=== PATIENT | female | born 2005 | race Hispanic/Latino ===

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

== ENCOUNTER → 2024-01-05 11:00 | Outpatient (REF) | payer OTHER, SELFPAY ==
[2024-01-07 20:10] LABS: Quantiferon Mitogen minus NIL 5.35 IU/mL; Quantiferon NIL 0.01 IU/mL; Quantiferon TB Gold Plus Negative (Negative)
== END ==
LOC: OHS 11:00
PROVIDERS: ATTENDING PHYSICIAN Nurse Practitioner Family
DX: Z23 Encounter for immunization (principal)
CPT/HCPCS: 36415; 86480

== ENCOUNTER 2024-02-27 09:28 | Emergency (ER) | payer OTHER, SELFPAY ==
[2024-02-27 09:39] VITALS: BP 131/89
[2024-02-27 09:58] VITALS: BMI 40.1
[2024-02-27 10:02] VITALS: BP 131/85
[2024-02-27] MEDS: NSS 1000 IV ×2 (10:26→11:46)
[2024-02-27] MEDS: ZOFRAN 4 MG IV (10:27)
[2024-02-27 10:39] LABS: % Basophils 0.5 % (0-2); % Eosinophils 3.7 % (0-6); % Immature Granulocytes 0.4 % (0-0.5); % Lymphocytes 27.2 % (20.5-51.1); % Monocytes 6.3 % (1.7-9.3); % Neutrophils 61.9 % (42.2-75.2); Absolute Eosinophils 0.3 10^3/uL (0-0.7); Absolute Lymphocytes 2.1 10^3/uL (1.2-3.4); Absolute Monocytes 0.5 10^3/uL (0.1-0.6); Absolute Neutrophils 4.7 10^3/uL (1.4-6.5); Hematocrit 37.6 % (37.0-47.0); Hemoglobin 12.6 g/dL (12.0-16.0); Mean Corp Hgb Conc. 33.5 g/dL (33.0-37.0); Mean Corpuscular Hgb 27.2 pg (27.0-31.0); Mean Corpuscular Volume 81.2 fL (81.0-99.0); Mean Platelet Volume 10.3 fL (7.4-10.4); Nucleated Red Blood Cells % 0 %; Platelet Count 328 10^3/uL (130-400); Red Blood Cell Count 4.63 10^6/uL (4.20-5.40); Red Cell Dist. Width 13.2 % (11.5-14.5); White Blood Cell Count 7.6 10^3/uL (4.8-10.8)
--- NOTE | 2024-02-27 10:47 | ED.GENMED ---
History of Present Illness
General
Chief Complaint: Fainting/Passed Out
Source: patient
Exam Limitations: none
Time Seen by Provider: 02/27/24 09:52
Nursing documentation reviewed up to this point in time: agreed with
History of Present Illness
History of Present Illness:
18-year-old female history of POTS followed by cardiology Orestes takes meclizine and a PPI presents with dizziness near syncope after standing she states she was standing slowly upstairs while she was at work, has some pressure in her chest
nearly passed out, she feels dizzy like the room is spinning, denies no heavy vaginal bleeding, no fever or chills
Past History
Past History
ED Past Medical History: Other (POTS)
Social History
Tobacco: 2nd hand smoke exposure
Alcohol: None
Drug: None
Personal: Single
Living: with family
Employment: Employed
Review of Systems
Review of Systems
All Other Systems: Not applicable
Constitutional: Denies fever, fatigue or chills
Respiratory: Reports trouble breathing
Cardiac: Reports chest pain; Denies syncope
ABD/GI: Reports no symptoms
: Reports no symptoms
Neurological: Reports dizzy and weakness
Endocrine: Reports no symptoms
Phy Exam
Physical Exam
Physical Exam:
Physical Exam
General: no apparent distress, not acutely ill
Neck: No tongue bite no posterior neck pain no overt signs of head or neck trauma
Heart: Regular
Lungs: no acute respiratory distress. clear bilaterally
Abdomen: Nontender
Neuro: alert and oriented. no focal neurological deficits
Skin: no rash
Psychiatric: well kept. interactive and cooperative
Extremities: no edema. no calf tenderness.
Course
Orders/Labs/Results
Orders:
Orders
02/27/24 09:41
ECG [Electrocardiogram (*1)] Urgent
Reason for Study: Chest Pain
EKG- Treatment ONCE
02/27/24 10:08
Cardiac Monitoring- Treatment ONCE
0.9% Sodium Chloride 1000 ml [Nss] 1,000 ml IV BOLUS
Ondansetron Injectable [Zofran] 4 mg IV NOW STA
Test Result ONCE
CR Chest - 2 Views Urgent
Comment:
Reason For Exam: sob
02/27/24 10:12
D-Dimer Urgent
02/27/24 10:13
Complete Blood Count/With Diff Urgent
Comprehensive Metabolic Panel Urgent
HCG, Serum Qualitative Screen Urgent
Magnesium Urgent
Troponin I Urgent
02/27/24 11:38
0.9% Sodium Chloride 1000 ml [Nss] 1,000 ml IV BOLUS
Diphenhydramine [Benadryl] 25 mg IV NOW STA
02/27/24 11:42
Ketorolac [Toradol] 30 mg IV NOW STA
02/27/24 10:13
02/27/24 10:13
Vital Signs
Initial and Last Documented VS:
Initial Vital Signs
Temp Pulse Resp BP Pulse Ox
98.7 F 78 20 131/89 97
02/27/24 09:39 02/27/24 09:39 02/27/24 09:39 02/27/24 09:39 02/27/24 09:39
Last Documented Vital Signs
Temp Pulse Resp BP Pulse Ox
98.7 F 100 17 114/76 97
02/27/24 09:39 02/27/24 12:30 02/27/24 12:30 02/27/24 11:00 02/27/24 09:39
MDM/Problems Addressed
Differential Diagnosis Includes:
POTS flare, arrhythmia, dehydration, doubt ACS, PE not inconceivable, electrolyte abnormality anemia
MDM/Problems Addressed:
Near syncope
Acute Exacerbation and/or Progression of Chronic Illness:
POTS
*Radiology
Radiology exam reviewed: preliminary read by ED provider
*Pulse Oximetry
Patient hypoxic: no
*EKG
Interpreted by ED Provider?: Yes
Interpretation: normal
Heart Rate: 68
Rate: normal
Rhythm: sinus
Ischemia: no ischemia
*Self Rising Flour Mixer Interpretation
Rate: normal
Interpretation: normal
Heart Rate: 78
Rhythm: sinus
*Critical Care Note
Total Time (30-74mins, 75-104mins- exclusive of procedures): Not Applicable
Update Note
Update Note:
Update labs noted including troponin and D-dimer
11:30 AM patient set up still feels dizzy took meclizine already today we will give another liter of fluid and some Benadryl
1 PM patient feeling better
ED Attending Note
-
Portions of this chart may have been created with voice recognition software.� Occasional wrong word or��sound alike� substitutions may have occurred due to the inherent limitations of voice recognition software.
Discharge Plan
Departure
Patient Disposition: Home (Routine Discharge)
Date of Disposition: 02/27/24
Time of Disposition: 13:02
Patient with high blood pressure during this ER visit?: No
Condition: Good
Discharge Problem:
POTS (postural orthostatic tachycardia syndrome)
Instructions: Dizziness, Nonvertigo, (DC), Syncope (Fainting) (DC)
Prescriptions:
No Action
cyclobenzaprine 10 MG tablet
10 mg PO TIDPRN PRN (Reason: pain in back/sides) Qty: 15 0RF
prednisone 50 mg tablet
50 mg PO DAILY Qty: 4 0RF
albuterol sulfate 2.5 mg /3 mL (0.083 %) solution for nebulization
2.5 mg inhalation Q4H PRN (Reason: shortness of breath or wheezing) Qty: 90 0RF
methylprednisolone [Medrol (Shaheen)] 4 mg tablets,dose pack
See Rx Instructions .ROUTE .COMPLEX Qty: 21 0RF
Rx Instructions:
orally per package directions
Referrals:
Brett Gaspar DO [Family Provider] -
Interventions
Interventions:
*Risk Screen - Suicide Last Done: 02/27/24 09:58
*General Assessment Last Done: 02/27/24 09:58
*Neglect/Abuse Screening Last Done: 02/27/24 09:58
ED- Fall Risk Assessment Last Done: 02/27/24 09:58
*ED COVID-19 Vaccine History Last Done: 02/27/24 09:51
ED- Cardiac Assessment Last Done: 02/27/24 09:58
ED- Neurological Assessment Last Done: 02/27/24 09:58
Discharge Date and Time
Print Language: [email or web address]
[2024-02-27 10:51] LABS: HCG, Serum Qualitative Screen Negative
[2024-02-27 10:51] LABS: D-Dimer 0.33 ug/mlFEU (0.00-0.50)
[2024-02-27 10:53] LABS: ALT (SGPT) 29 U/L (0-35); AST (SGOT) 27 U/L (14-36); Albumin 4.5 g/dl (3.5-5.0); Alkaline Phosphatase 82 U/L (38-126); Blood Urea Nitrogen 17 mg/dl (7-17); Carbon Dioxide 25 mmol/L (22-30); Chloride 103 mmol/L (98-107); Estimated Creatinine Clearance > 125 ml/min; Glucose 84 mg/dl (70-99); Magnesium 1.9 mg/dl (1.6-2.3); Potassium 4.2 mmol/L (3.5-5.1); Sodium 136 mmol/L (135-145); Total Bilirubin 0.3 mg/dl (0.2-1.3); Total Protein 7.5 g/dl (6.3-8.2); eGFR > 60.00
[2024-02-27 11:00] VITALS: BP 114/76
[2024-02-27 11:05] LABS: Troponin I < 0.012 ng/ml
[2024-02-27] MEDS: TORADOL 30 MG IV (11:46)
[2024-02-27] MEDS: BENADRYL 25 MG IV (11:46)
== END 2024-02-27 13:45 | disposition home or self-care (01) ==
LOC: EMR 09:28
PROVIDERS: EMERGENCY PHYSICIAN Emergency Medicine; FAMILY PHYSICIAN Pediatrics
DX: R55 Syncope and collapse (principal); G90.A Postural orthostatic tachycardia syndrome [POTS]; R07.89 Other chest pain; G43.909 Migraine, unspecified, not intractable, without status migrainosus; Z77.22 Contact with and (suspected) exposure to environmental tobacco smoke (acute) (chronic)
CPT/HCPCS: 99284; 96374; 96375 ×2; 96361 ×2; 71046; 80053; 83735; 84484; 84703; 85025; 85379; 93005

== ENCOUNTER 2024-03-17 14:16 | Emergency (ER) | payer OTHER, SELFPAY ==
[2024-03-17 14:21] VITALS: BP 122/93
[2024-03-17 14:54] LABS: COVID-19 Antigen Positive (Negative)
--- NOTE | 2024-03-17 15:05 | ED.GENMED ---
History of Present Illness
<Amber Duenas PA-C - Last Filed: 03/17/24 20:59>
General
Chief Complaint: Fever
Source: patient
Exam Limitations: none
Time Seen by Provider: 03/17/24 15:03
Nursing documentation reviewed up to this point in time: agreed with
History of Present Illness
History of Present Illness:
This is a 18 y/o female with a PMH of endometriosis presenting to the emergency department today with concerns of sore throat, fever, dizziness, coughing for the past 3 days. Patient was at the beach this past weekend and she thought her symptoms
could be related to a heat related illness. Thinks she may be dehydrated. Patient also reports nausea and vomiting with this and patient reports that when she will try to eat, she is a hard time keeping food in her stomach. Patient also reports
on and off fevers, with her highest temperature at home being 105 �F. Patient reports that the last time she took medication was this morning at 8 AM where she took TheraFlu, 2 tablets of ibuprofen, and a meclizine tablet. Patient also notes some
mild chest discomfort and shortness of breath. Patient denies any allergies to any medications. Patient denies any dysphagia, tongue or lip swelling. Patient has a history of a tonsillectomy. Patient was seen by urgent care today where they
thought she had tonsillitis and advised to go to the emergency department.
Past History
<Amber Duenas PA-C - Last Filed: 03/17/24 20:59>
Past History
ED Past Medical History: Other (POTS)
Social History
Tobacco: 2nd hand smoke exposure
Alcohol: None
Drug: None
Personal: Single
Living: with family
Employment: Employed
Review of Systems
<Amber Duenas PA-C - Last Filed: 03/17/24 20:59>
Review of Systems
All Other Systems: ROS reviewed and negative except as documented in HPI and ROS
Phy Exam
<Amber Duenas PA-C - Last Filed: 03/17/24 20:59>
Physical Exam
Physical Exam:
General: Patient is well appearing and in no acute distress; non-toxic
Skin: Warm and dry, no rashes or lesions
Head: Normocephalic, atraumatic
Eyes: Sclera non-icteric. EOMs intact. PERRLA.
Cardiac: Patient is tachycardic otherwise regular rhythm, no murmurs, no tenderness on palpation of the external chest wall
Peripheral Vascular: No lower extremity swelling or edema
Pulm: Normal respiratory effort, no wheezes, rales, rhonchi
Abdomen: No abdominal tenderness to palpation
Neuro: CN II-XII intact, no focal neurologic deficits.
Psychiatric: Appropriate mood and affect.
Course
<Amber Duenas PA-C - Last Filed: 03/17/24 20:59>
Orders/Labs/Results
Orders:
Orders
03/17/24 14:25
COVID-19 Antigen Urgent
Source: Nasal Swab
Influenza A+B Rapid Molecular Urgent
PATRICK Source: Nasal Swab
Specimen Description:
Date Specimen was Collected: 03/17/24
Time Specimen was Collected: 14:23
Rapid Strep Group A Urgent
PATRICK Source: Throat/Pharynx
Specimen Description:
Date Specimen was Collected: 03/17/24
Time Specimen was Collected: 14:23
03/17/24 15:22
0.9% Sodium Chloride 1000 ml [Nss] 1,000 ml IV BOLUS
Ketorolac [Toradol] 15 mg IV NOW STA
Ondansetron Injectable [Zofran] 4 mg IV NOW STA
CR Chest - 2 Views Urgent
Comment:
Reason For Exam: chest pain, shortness of breath
03/17/24 15:46
Complete Blood Count/With Diff Urgent
Comprehensive Metabolic Panel Urgent
03/17/24 17:52
Diphenhydramine [Benadryl] 25 mg IV NOW STA
03/17/24 17:59
Acetaminophen [Tylenol] 1,000 mg PO NOW STA
Abnormal Lab Results
03/17/24 03/17/24
14:25 15:46
MCV 80.3 L fL
(81.0-99.0)
Absolute Monos (auto) 0.7 H 10^3/uL
(0.1-0.6)
Lymphocytes % 14.4 L %
(20.5-51.1)
SARS-CoV-2 Antigen Positive A
(Negative)
03/17/24 15:46
03/17/24 15:46
Vital Signs
Initial and Last Documented VS:
Initial Vital Signs
Temp Pulse Resp BP Pulse Ox
99.7 F 115 20 122/93 96
03/17/24 14:21 03/17/24 14:21 03/17/24 14:21 03/17/24 14:21 03/17/24 14:21
Last Documented Vital Signs
Temp Pulse Resp BP Pulse Ox
99.7 F 86 18 108/63 99
03/17/24 14:21 03/17/24 18:37 03/17/24 18:37 03/17/24 18:37 03/17/24 18:37
<Ganesh Tinoco, DO - Last Filed: 03/17/24 18:30>
Orders/Labs/Results
Orders:
Orders
03/17/24 14:25
COVID-19 Antigen Urgent
Source: Nasal Swab
Influenza A+B Rapid Molecular Urgent
PATRICK Source: Nasal Swab
Specimen Description:
Date Specimen was Collected: 03/17/24
Time Specimen was Collected: 14:23
Rapid Strep Group A Urgent
PATRICK Source: Throat/Pharynx
Specimen Description:
Date Specimen was Collected: 03/17/24
Time Specimen was Collected: 14:23
03/17/24 15:22
0.9% Sodium Chloride 1000 ml [Nss] 1,000 ml IV BOLUS
Ketorolac [Toradol] 15 mg IV NOW STA
Ondansetron Injectable [Zofran] 4 mg IV NOW STA
CR Chest - 2 Views Urgent
Comment:
Reason For Exam: chest pain, shortness of breath
03/17/24 15:46
Complete Blood Count/With Diff Urgent
Comprehensive Metabolic Panel Urgent
03/17/24 17:52
Diphenhydramine [Benadryl] 25 mg IV NOW STA
03/17/24 17:59
Acetaminophen [Tylenol] 1,000 mg PO NOW STA
Abnormal Lab Results
03/17/24 03/17/24
14:25 15:46
MCV 80.3 L fL
(81.0-99.0)
Absolute Monos (auto) 0.7 H 10^3/uL
(0.1-0.6)
Lymphocytes % 14.4 L %
(20.5-51.1)
SARS-CoV-2 Antigen Positive A
(Negative)
03/17/24 15:46
03/17/24 15:46
Vital Signs
Initial and Last Documented VS:
Initial Vital Signs
Temp Pulse Resp BP Pulse Ox
99.7 F 115 20 122/93 96
03/17/24 14:21 03/17/24 14:21 03/17/24 14:21 03/17/24 14:21 03/17/24 14:21
Last Documented Vital Signs
Temp Pulse Resp BP Pulse Ox
99.7 F 86 18 108/63 99
03/17/24 14:21 03/17/24 18:37 03/17/24 18:37 03/17/24 18:37 03/17/24 18:37
<Amber Duenas PA-C - Last Filed: 03/17/24 20:59>
MDM/Problems Addressed
Differential Diagnosis Includes:
Differentials include acute COVID-19 infection, upper respiratory tract infection, pneumonia, strep pharyngitis, BPPV, vestibular neuritis
MDM/Problems Addressed:
COVID 19:
This is a 18 y/o female with a PMH of endometriosis presenting to the emergency department today with concerns of sore throat, fever, dizziness, coughing for the past 3 days. Patient was at the beach this past weekend and she thought her symptoms
could be related to a heat related illness. She thinks she may be dehydrated. She is also had on and off fevers. In the emergency department, she is well-appearing but is tachycardic, her skin is warm to the touch. Patient was given IV fluids,
Zofran, Toradol, and Tylenol. On reassessment, patient states that she does feel a bit better but is still largely symptomatic. Discussed with her how these her symptoms expect with COVID. Patient was really nervous about having possible
pneumonia. Her chest x-ray is negative for any acute cardiopulmonary process. Patient stable for discharge to follow-up with her primary care provider.
Chronic conditions affecting care:
Endometriosis
Acute Exacerbation and/or Progression of Chronic Illness:
n/a
<Amber Duenas PA-C - Last Filed: 03/17/24 20:59>
*Pulse Oximetry
Patient hypoxic: no
*Critical Care Note
Total Time (30-74mins, 75-104mins- exclusive of procedures): Not Applicable
Data Reviewed
Review of Other/Old Records Reveals: Records (Reviewed previous ER physician documentation from 05/12/2023 where patient was seen for similar symptoms and was seen for COVID-19)
Source: patient and records
ED Attending Note
<Amber Duenas PA-C - Last Filed: 03/17/24 20:59>
-
Portions of this chart may have been created with voice recognition software.� Occasional wrong word or��sound alike� substitutions may have occurred due to the inherent limitations of voice recognition software.
<Ganesh Tinoco, DO - Last Filed: 03/17/24 18:30>
ED Attending Note
Patient seen and examined by attending physician: Yes
I performed the substantive portion of visit, reviewed & personally made and approve the management plan that is documented in note by myself or MARS.: Yes
I performed a history and physical exam of patient and discussed management with resident, I reviewed resident's note and agree with documented findings and plan of care.: Yes
ED Attending Note:
I evaluated patient at bedside. The patient arrived with initial heart rate of 115. On reassessment at 6 PM, the patient's heart rate was down to 80. She continues to complain of dizziness and was given IV fluids. Overall vital signs have
improved.
Discharge Plan
Departure
Patient Disposition: Home (Routine Discharge)
Date of Disposition: 03/17/24
Time of Disposition: 18:24
Patient with high blood pressure during this ER visit?: Yes
Condition: Good
Discharge Problem:
COVID-19
Instructions: Fever, Adult (DC), COVID-19 ED, BLOOD PRESSURE
Prescriptions:
New
ondansetron 4 mg tablet,disintegrating
4 mg PO Q6H PRN (Reason: nausea and vomiting) Qty: 10 0RF
No Action
cyclobenzaprine 10 MG tablet
10 mg PO TIDPRN PRN (Reason: pain in back/sides) Qty: 15 0RF
prednisone 50 mg tablet
50 mg PO DAILY Qty: 4 0RF
albuterol sulfate 2.5 mg /3 mL (0.083 %) solution for nebulization
2.5 mg inhalation Q4H PRN (Reason: shortness of breath or wheezing) Qty: 90 0RF
methylprednisolone [Medrol (Shaheen)] 4 mg tablets,dose pack
See Rx Instructions .ROUTE .COMPLEX Qty: 21 0RF
Rx Instructions:
orally per package directions
Referrals:
Brett Gaspar DO [Family Provider] -
Activity Restrictions/Additional Instructions:
As discussed, these are symptoms that can be expected with a COVID-19 infection. Please stay well rested and well hydrated.
Please stay on top of management for your fever. If you develop a fever, the next time you can take Tylenol today is 10 pm. The next time you can take Motrin is 7:22 pm.
Zofran has been sent to your pharmacy. You were given Zofran in the emergency department. The next time you can take is medication is 7:22 pm. You can take one tablet every 6 hours as needed.
Please follow up with your primary care provider in one week to ensure the resolution of your symptoms.
Interventions
Interventions:
*Risk Screen - Suicide Last Done: 03/17/24 16:00
*General Assessment Last Done: 03/17/24 16:00
*Neglect/Abuse Screening Last Done: 03/17/24 16:00
ED- Fall Risk Assessment Last Done: 03/17/24 15:59
*ED COVID-19 Vaccine History Last Done: 03/17/24 16:00
*Nursing Disposition Last Done: 03/17/24 19:17
ED- Neurological Assessment Last Done: 03/17/24 15:59
ED-Skin Assessment Last Done: 03/17/24 15:59
Discharge Date and Time
Discharge Date/Time: 03/17/24 19:18
Print Language: SWISS
[2024-03-17] MEDS: NSS 1000 IV (15:43)
[2024-03-17] MEDS: TORADOL 15 MG IV (15:43)
[2024-03-17] MEDS: ZOFRAN 4 MG IV (15:43)
[2024-03-17 15:55] LABS: % Basophils 0.5 % (0-2); % Eosinophils 1.4 % (0-6); % Immature Granulocytes 0.5 % (0-0.5); % Lymphocytes 14.4 % (20.5-51.1); % Monocytes 8.2 % (1.7-9.3); Absolute Eosinophils 0.1 10^3/uL (0-0.7); Absolute Lymphocytes 1.2 10^3/uL (1.2-3.4); Absolute Monocytes 0.7 10^3/uL (0.1-0.6); Absolute Neutrophils 6.2 10^3/uL (1.4-6.5); Hematocrit 37.9 % (37.0-47.0); Hemoglobin 12.8 g/dL (12.0-16.0); Mean Corp Hgb Conc. 33.8 g/dL (33.0-37.0); Mean Corpuscular Hgb 27.1 pg (27.0-31.0); Mean Corpuscular Volume 80.3 fL (81.0-99.0); Mean Platelet Volume 10.4 fL (7.4-10.4); Nucleated Red Blood Cells % 0 %; Platelet Count 295 10^3/uL (130-400); Red Blood Cell Count 4.72 10^6/uL (4.20-5.40); Red Cell Dist. Width 13.4 % (11.5-14.5); White Blood Cell Count 8.3 10^3/uL (4.8-10.8)
[2024-03-17 16:00] VITALS: BP 115/79
[2024-03-17 16:08] LABS: ALT (SGPT) 27 U/L (0-35); AST (SGOT) 32 U/L (14-36); Albumin 4.5 g/dl (3.5-5.0); Alkaline Phosphatase 76 U/L (38-126); Blood Urea Nitrogen 16 mg/dl (7-17); Calcium 9.5 mg/dl (8.4-10.2); Carbon Dioxide 24 mmol/L (22-30); Chloride 101 mmol/L (98-107); Glucose 81 mg/dl (70-99); Sodium 135 mmol/L (135-145); Total Bilirubin 0.8 mg/dl (0.2-1.3); Total Protein 7.3 g/dl (6.3-8.2); eGFR > 60.00
[2024-03-17] MEDS: BENADRYL 25 MG IV (17:58)
[2024-03-17] MEDS: TYLENOL 1000 MG PO (18:07)
[2024-03-17 18:37] VITALS: BP 108/63
== END 2024-03-17 19:18 | disposition home or self-care (01) ==
LOC: EMR 14:16
PROVIDERS: Emergency Medicine; Physician Assistant; EMERGENCY PHYSICIAN Emergency Medicine; FAMILY PHYSICIAN Pediatrics
DX: U07.1 COVID-19 (principal); R50.9 Fever, unspecified; R06.02 Shortness of breath; R07.9 Chest pain, unspecified
CPT/HCPCS: 99284; 96374; 96375 ×2; 96361; 71046; 80053; 85025; 87070; 87502; 87811; 87880

== ENCOUNTER 2024-08-27 17:00 | Emergency (ER) | payer OTHER, SELFPAY ==
[2024-08-27 17:33] VITALS: BP 127/89
--- NOTE | 2024-08-27 17:37 | ED.GENMED ---
ED Provider Triage
<Brennan Marina Jr., PA-C - Last Filed: 08/27/24 17:38>
-
Patient seen by provider in Triage?: Seen in Triage
Attestation: A medical screening examination has been initiated by a qualified medical provider. Based on the assessment performed at this time, it has been determined that an emergent medical condition may exist and the patient has been informed
that further medical evaluation and possible additional diagnostic testing may be needed.
HPI: 18-year-old female presenting to the emergency department with concerns of right-sided abdominal pain and flank pain worsening over the past few days specifically worsened over the the past 24 hours. Associated nausea vomiting diarrhea. On
brief examination here patient did have reproducible discomfort to the right flank right side of the abdomen and right CVA concerning this plan for CT scan for further assessment.
GENERAL: Alert ,crying
EYE: No visual abnormalities.
NECK: Trachea midline
ENT: No visible abnormalities.
LUNGS: No acute respiratory distress
NEUROLOGICAL: Alert and oriented
SKIN: Skin intact. No visible changes.
MUSCULOSKELETAL: Moving extremities normally
PSYCH: Normal and appropriate interaction.
This is a medical evaluation conducted in person to initiate diagnostic evaluation and provide initial therapeutics. Please see further documentation by the treating clinician.
History of Present Illness
<Brennan Marina Jr., PA-C - Last Filed: 08/27/24 17:38>
General
Chief Complaint: Abdominal Symptoms
Time Seen by Provider: 08/27/24 19:31
<Esme Lerma MD - Last Filed: 08/27/24 22:09>
General
Source: patient
History of Present Illness
History of Present Illness:
This patient is a 18-year-old female presents emergency department complaints of feeling 'sick' for the last 2 weeks. It started with URI symptoms which was treated initially with a Z-Shaheen and then another antibiotic. However, approximately 3 days
ago she developed a gradual onset of mid abdominal pain that radiates around to the right back. She thought it might be constipation and took a laxative. Last evening the pain got worse associated with nausea and multiple episodes of nonbloody
vomiting. She said today the pain felt 'tolerable' and she went to work, but again developed nausea, vomiting, and now 'wet diarrhea' without black stool or blood. She describes the pain as 'pressure', without exacerbating relieving factors. This
is without radiation. She took Zofran at noon and Tylenol at 6:30 AM. She denies dysuria, hematuria, fever, chest pain, shortness of breath. Patient does not have a menstrual period given her history of endometriosis.
Past History
<Brennan Marina Jr., PA-C - Last Filed: 08/27/24 17:38>
Past History
ED Past Medical History: Other (POTS)
Social History
Tobacco: 2nd hand smoke exposure
Alcohol: None
Drug: None
Personal: Single
Living: with family
Employment: Employed
<Esme Lerma MD - Last Filed: 08/27/24 22:09>
Past History
ED Past Medical History: Other (POTS, endometriosis, constipation)
ED Past Surgical History: Other ([place] teeth, laparotomy x 5, Ortho, ear tubes)
Phy Exam
<Esme Lerma MD - Last Filed: 08/27/24 22:09>
Physical Exam
Physical Exam:
GENERAL: Alert , in no apparent distress
EYE: pupils equal and reactive
NECK: Supple, no significant adenopathy.
ENT: o/p clr, mm dry
CARDIAC: Regular rate and rhythm .
LUNGS: Clear breath sounds bilaterally, no acute respiratory distress, no wheezes/rales/rhonchi
ABDOMEN: Soft, diffuse mid to lower abdominal tenderness, no r/g
NEUROLOGICAL: Alert and oriented, no focal neuro deficits
SKIN: Warm and dry, skin intact.
MUSCULOSKELETAL: No edema, well perfused.
PSYCH: Normal and appropriate interaction.
Course
<Brennan Marina Jr., KIMBERLYN - Last Filed: 08/27/24 17:38>
Orders/Labs/Results
Orders:
Orders
08/27/24 17:32
Test Result ONCE
08/27/24 17:35
ECG [Electrocardiogram (*1)] Urgent
Reason for Study: Chest Pain
EKG- Treatment ONCE
08/27/24 17:36
CT Abd/Pel (IV only)-DH only Urgent
Comment:
Reason For Exam: right sided pain
08/27/24 17:37
Ondansetron Orally Disint [Zofran Odt (Orally Disintegrating)] 4 mg PO NOW STA
08/27/24 17:38
Ondansetron Orally Disint [Zofran Odt (Orally Disintegrating)] 4 mg .ROUTE .STK-MED ONE
08/27/24 17:41
Complete Blood Count/With Diff Urgent
Comprehensive Metabolic Panel Urgent
HCG, Serum Qualitative Screen Urgent
08/27/24 19:43
0.9% Sodium Chloride 1000 ml [Nss] 1,000 ml IV BOLUS
Ondansetron Injectable [Zofran] 4 mg IV NOW STA
Pantoprazole [Protonix IV] 40 mg IV NOW STA
08/27/24 20:04
Acetaminophen [Tylenol] 650 mg PO NOW STA
08/27/24 21:25
Urinalysis Reflex To Culture Urgent
Date Specimen was Collected: 08/27/24
Time Specimen was Collected: 21:24
STOOL [C difficile Antigen & Toxins] Urgent
PATRICK Source: Feces/Stool
Specimen Description:
Date Specimen was Collected: 08/27/24
Time Specimen was Collected: 21:24
Stool Culture Urgent
PATRICK Source: Feces/Stool
Specimen Description:
Date Specimen was Collected: 08/27/24
Time Specimen was Collected: :24
Yersinia Culture-Stool Urgent
PATRICK Source: Feces/Stool
Specimen Description:
Date Specimen was Collected: 08/27/24
Time Specimen was Collected: 21:24
08/27/24 21:33
Dicyclomine [Bentyl] 20 mg PO NOW STA
Abnormal Lab Results
08/27/24
17:41
WBC 13.2 H 10^3/uL
(4.8-10.8)
MCH 26.8 L pg
(27.0-31.0)
MCHC 32.9 L g/dL
(33.0-37.0)
MPV 10.8 H fL
(7.4-10.4)
Abs Immat Gran (auto) 0.1 H 10^3/uL
(0-0.05)
Absolute Neuts (auto) 11.7 H 10^3/uL
(1.4-6.5)
Absolute Lymphs (auto) 0.8 L 10^3/uL
(1.2-3.4)
Neutrophils % 88.5 H %
(42.2-75.2)
Lymphocytes % 5.7 L %
(20.5-51.1)
08/27/24 17:41
08/27/24 17:41
Vital Signs
Initial and Last Documented VS:
Initial Vital Signs
Temp Pulse Resp Pulse Ox
98.1 F 128 20 99
08/27/24 17:29 08/27/24 17:29 08/27/24 17:29 08/27/24 17:29
Last Documented Vital Signs
Temp Pulse Resp BP Pulse Ox
100.2 F 113 20 143/90 100
08/27/24 19:55 08/27/24 20:17 08/27/24 17:29 08/27/24 20:04 08/27/24 20:17
<Esme Lerma MD - Last Filed: 08/27/24 22:09>
Orders/Labs/Results
Orders:
Orders
08/27/24 17:32
Test Result ONCE
08/27/24 17:35
ECG [Electrocardiogram (*1)] Urgent
Reason for Study: Chest Pain
EKG- Treatment ONCE
08/27/24 17:36
CT Abd/Pel (IV only)-[facility] only Urgent
Comment:
Reason For Exam: right sided pain
08/27/24 17:37
Ondansetron Orally Disint [Zofran Odt (Orally Disintegrating)] 4 mg PO NOW STA
08/27/24 17:38
Ondansetron Orally Disint [Zofran Odt (Orally Disintegrating)] 4 mg .ROUTE .STK-MED ONE
08/27/24 17:41
Complete Blood Count/With Diff Urgent
Comprehensive Metabolic Panel Urgent
HCG, Serum Qualitative Screen Urgent
08/27/24 19:43
0.9% Sodium Chloride 1000 ml [Nss] 1,000 ml IV BOLUS
Ondansetron Injectable [Zofran] 4 mg IV NOW STA
Pantoprazole [Protonix IV] 40 mg IV NOW STA
08/27/24 20:04
Acetaminophen [Tylenol] 650 mg PO NOW STA
08/27/24 21:25
Urinalysis Reflex To Culture Urgent
Date Specimen was Collected: 08/27/24
Time Specimen was Collected: 21:24
STOOL [C difficile Antigen & Toxins] Urgent
PATRICK Source: Feces/Stool
Specimen Description:
Date Specimen was Collected: 08/27/24
Time Specimen was Collected: 21:24
Stool Culture Urgent
PATRICK Source: Feces/Stool
Specimen Description:
Date Specimen was Collected: 08/27/24
Time Specimen was Collected: 21:24
Yersinia Culture-Stool Urgent
PATRICK Source: Feces/Stool
Specimen Description:
Date Specimen was Collected: 08/27/24
Time Specimen was Collected: 21:24
08/27/24 21:33
Dicyclomine [Bentyl] 20 mg PO NOW STA
Abnormal Lab Results
08/27/24
17:41
WBC 13.2 H 10^3/uL
(4.8-10.8)
MCH 26.8 L pg
(27.0-31.0)
MCHC 32.9 L g/dL
(33.0-37.0)
MPV 10.8 H fL
(7.4-10.4)
Abs Immat Gran (auto) 0.1 H 10^3/uL
(0-0.05)
Absolute Neuts (auto) 11.7 H 10^3/uL
(1.4-6.5)
Absolute Lymphs (auto) 0.8 L 10^3/uL
(1.2-3.4)
Neutrophils % 88.5 H %
(42.2-75.2)
Lymphocytes % 5.7 L %
(20.5-51.1)
08/27/24 17:41
08/27/24 17:41
Vital Signs
Initial and Last Documented VS:
Initial Vital Signs
Temp Pulse Resp Pulse Ox
98.1 F 128 20 99
08/27/24 17:29 08/27/24 17:29 08/27/24 17:29 08/27/24 17:29
Last Documented Vital Signs
Temp Pulse Resp BP Pulse Ox
100.2 F 113 20 143/90 100
08/27/24 19:55 08/27/24 20:17 08/27/24 17:29 08/27/24 20:04 08/27/24 20:17
<Esme Lerma MD - Last Filed: 08/27/24 22:09>
*Critical Care Note
Total Time (30-74mins, 75-104mins- exclusive of procedures): Not Applicable
<Esme Lerma MD - Last Filed: 08/27/24 22:09>
Update Note
Update Note:
Patient presents to the Emergency Department with ____abdominal pain nausea vomiting diarrhea
Number and Complexity of Problems Addressed at the Encounter
� Chronic conditions affecting care:
� Acute Exacerbation and/or Progression of Chronic Illness:
� Differential Diagnosis includes: But not limited to norovirus, gastroenteritis, colitis, cholecystitis, appendicitis, kidney stone, etc.
Amount and/or Complexity of Data to be Reviewed and Analyzed
� I performed an independent evaluation of and my interpretation is:
EKG: Read by me, sinus tachycardia, normal axis, no acute ischemia
CT:read by Dr Hidalgo Findings of likely mild gastroenteritis.
Prior appendectomy.
Xrays:
Laboratory Studies: Slight white blood cell count elevation, hCG negative
Other:
� Review of other/old records reveals:
� Clinical information was obtained by an independent historian:
� Prescriptions/Medications Considered but not given:
� Further testing considered but not performed:
Risk of Complications and/or Morbidity or Mortality of Patient Management
� Social determinants of health affecting care:
� Discussion with other providers (PCP, Hospitalists, Consultants, etc):
� Escalation of care including admission/observation vs risk of discharge considered: CT performed but result pending, will medicate with IV fluids, Zofran, PPI, and reassess. Stool studies ordered given recent antibiotics.
10:08 PM several reassessments here, patient is feeling better and would like to go home. She was given a dose of Bentyl for her abdominal cramping. Strongly suspect gastroenteritis as a cause of her symptoms, no findings to suggest acute surgical
condition. Discussed with patient importance of follow-up and reasons return the emergency department.
ED Attending Note
<Brennan Marina Jr., PA-C - Last Filed: 08/27/24 17:38>
-
Portions of this chart may have been created with voice recognition software.� Occasional wrong word or��sound alike� substitutions may have occurred due to the inherent limitations of voice recognition software.
Discharge Plan
Departure
Patient Disposition: Home (Routine Discharge)
Date of Disposition: 08/27/24
Time of Disposition: 22:08
Patient with high blood pressure during this ER visit?: Yes
Condition: Good
Discharge Problem:
Abdominal pain
Instructions: Diarrhea in teens and adults, Nausea and Vomiting, Adult (DC), Abdominal Pain, BLOOD PRESSURE
Prescriptions:
No Action
cyclobenzaprine 10 MG tablet
10 mg PO TIDPRN PRN (Reason: pain in back/sides) Qty: 15 0RF
prednisone 50 mg tablet
50 mg PO DAILY Qty: 4 0RF
albuterol sulfate 2.5 mg /3 mL (0.083 %) solution for nebulization
2.5 mg inhalation Q4H PRN (Reason: shortness of breath or wheezing) Qty: 90 0RF
methylprednisolone [Medrol (Shaheen)] 4 mg tablets,dose pack
See Rx Instructions .ROUTE .COMPLEX Qty: 21 0RF
Rx Instructions:
orally per package directions
ondansetron 4 mg tablet,disintegrating
4 mg PO Q6H PRN (Reason: nausea and vomiting) Qty: 10 0RF
Referrals:
Iraida Cortes, [Family Provider] - Follow up in 2-3 days
Activity Restrictions/Additional Instructions:
IF YOU DEVELOP INCREASING NEW OR PERSISTENT PAIN, REPEATED VOMITING, REPEATED DIARRHEA, BLEEDING, GET WORSE, DO NOT GET BETTER, OR OTHER WORRISOME SIGNS, PLEASE RETURN TO THE ER IMMEDIATELY.
Interventions
Interventions:
*Risk Screen - Suicide Last Done: 08/27/24 17:29
*General Assessment Last Done: 08/27/24 20:05
*Neglect/Abuse Screening Last Done: 08/27/24 20:05
ED- Fall Risk Assessment Last Done: 08/27/24 19:45
*ED COVID-19 Vaccine History Last Done: 08/27/24 20:05
RB-Qxdljk-Cysvswldkd Assessment Last Done: 08/27/24 19:45
Discharge Date and Time
Print Language: ARMENIAN
[2024-08-27] MEDS: ZOFRAN ODT (ORALLY DISINTEGRATING) 4 MG PO (17:39)
[2024-08-27 17:59] LABS: % Basophils 0.2 % (0-2); % Eosinophils 0.8 % (0-6); % Immature Granulocytes 0.5 % (0-0.5); % Lymphocytes 5.7 % (20.5-51.1); % Monocytes 4.3 % (1.7-9.3); % Neutrophils 88.5 % (42.2-75.2); Absolute Eosinophils 0.1 10^3/uL (0-0.7); Absolute Immature Granulocytes 0.1 10^3/uL (0-0.05); Absolute Lymphocytes 0.8 10^3/uL (1.2-3.4); Absolute Monocytes 0.6 10^3/uL (0.1-0.6); Absolute Neutrophils 11.7 10^3/uL (1.4-6.5); Hematocrit 43.5 % (37.0-47.0); Hemoglobin 14.3 g/dL (12.0-16.0); Mean Corp Hgb Conc. 32.9 g/dL (33.0-37.0); Mean Corpuscular Hgb 26.8 pg (27.0-31.0); Mean Corpuscular Volume 81.5 fL (81.0-99.0); Mean Platelet Volume 10.8 fL (7.4-10.4); Nucleated Red Blood Cells % 0 %; Platelet Count 292 10^3/uL (130-400); Red Blood Cell Count 5.34 10^6/uL (4.20-5.40); Red Cell Dist. Width 13.9 % (11.5-14.5); White Blood Cell Count 13.2 10^3/uL (4.8-10.8)
[2024-08-27 18:15] LABS: HCG, Serum Qualitative Screen Negative
[2024-08-27 18:19] LABS: ALT (SGPT) 18 U/L (0-35); AST (SGOT) 25 U/L (14-36); Alkaline Phosphatase 81 U/L (38-126); Blood Urea Nitrogen 17 mg/dl (7-17); Calcium 9.7 mg/dl (8.4-10.2); Carbon Dioxide 24 mmol/L (22-30); Chloride 99 mmol/L (98-107); Glucose 92 mg/dl (70-99); Potassium 4.2 mmol/L (3.5-5.1); Sodium 136 mmol/L (135-145); Total Bilirubin 0.8 mg/dl (0.2-1.3); Total Protein 8.2 g/dl (6.3-8.2); eGFR > 60.00
[2024-08-27] MEDS: ZOFRAN 4 MG IV (19:49)
[2024-08-27] MEDS: PROTONIX IV 40 MG IV (19:50)
[2024-08-27] MEDS: NSS 1000 IV (19:54)
[2024-08-27 20:04] VITALS: BP 143/90
[2024-08-27] MEDS: TYLENOL 650 MG PO (20:10)
[2024-08-27 21:32] LABS: Urine Albumin Negative (Neg - Trace); Urine Bilirubin Negative (Negative); Urine Character Clear (Clear); Urine Color Yellow; Urine Glucose Negative (Negative); Urine Ketone Negative (Negative); Urine Leukocyte Negative (Negative); Urine Nitrite Negative (Negative); Urine Occult Blood Negative (Negative); Urine Urobilinogen Negative (Neg - 1+)
[2024-08-27] MEDS: BENTYL 20 MG PO (21:37)
== END 2024-08-27 22:26 | disposition home or self-care (01) ==
LOC: EMR 17:00
PROVIDERS: Emergency Medicine; EMERGENCY PHYSICIAN Emergency Medicine; FAMILY PHYSICIAN Pediatrics
DX: R10.9 Unspecified abdominal pain (principal); R11.2 Nausea with vomiting, unspecified; R19.7 Diarrhea, unspecified; M54.9 Dorsalgia, unspecified; R03.0 Elevated blood-pressure reading, without diagnosis of hypertension; G90.A Postural orthostatic tachycardia syndrome [POTS]; Z77.22 Contact with and (suspected) exposure to environmental tobacco smoke (acute) (chronic)
CPT/HCPCS: 99284; 96375; 96361 ×2; 96374; 74177; 80053; 81003; 84703; 85025; 87045; 87046; 87324; 87427; 87449; 93005; Q9967

== ENCOUNTER 2025-03-27 19:12 | Emergency (ER) | payer OTHER, SELFPAY ==
[2025-03-27 19:15] VITALS: BP 125/88
--- NOTE | 2025-03-27 20:03 | ED.GENMED ---
History of Present Illness
General
Chief Complaint: Numbness
Source: patient
Time Seen by Provider: 03/27/25 19:49
History of Present Illness
History of Present Illness:
19-year-old female presents emergency department after being referred from an urgent care. She states for the last 2 to 3 days she has had a generalized moderate headache that gets better with Naprosyn associated with '[id number]-[id number]-khkgngr' in her
bilateral upper extremities and posterior neck. This is not made worse or different with any exacerbating relieving factors. She also says that her face feels 'weird'. It is not specifically numb and she denies any change in speech, change in
vision, chest pain, palpitations, abdominal pain, back pain, recent trauma or falls, photophobia, fever, chills, imbalance, or other complaints. She does complain of intermittent lightheadedness and nausea which is, as per patient, consistent with
her diagnosis of POTS.
Past History
Past History
ED Past Medical History: Other (POTS, endometriosis, constipation)
ED Past Surgical History: Other ([place] teeth, laparotomy x 5, Ortho, ear tubes)
Social History
Tobacco: 2nd hand smoke exposure
Alcohol: None
Drug: None and Marijuana
Personal: Other
Living: with family
Employment: Employed
Phy Exam
Physical Exam
Physical Exam:
GENERAL: Alert , in no apparent distress
EYE: pupils equal and reactive, EOMI, no nystagmus, no photophobia
NECK: Supple, no significant adenopathy, no midline tenderness.
ENT: o/p clr, mmm.
CARDIAC: Regular rate and rhythm .
LUNGS: Clear breath sounds bilaterally, no acute respiratory distress, no wheezes/rales/rhonchi
ABDOMEN: Soft, without focal tenderness, no r/g, no cvat
NEUROLOGICAL: Alert and oriented, no focal neuro deficits, motor 5 out of 5, sensory intact to light touch throughout, gait normal, cranial nerves II through XII intact, [id number]-ly-ooss normal
SKIN: Warm and dry, skin intact.
MUSCULOSKELETAL: No edema, well perfused.
PSYCH: Normal and appropriate interaction.
Course
Orders/Labs/Results
Orders:
Orders
03/27/25 20:02
Electrocardiogram (*1) Urgent
Reason for Study: Other
Other Reason for Exam: tingling
CT Head W/o Iv Contrast Urgent
Comment:
Reason For Exam: tingling
EKG- Treatment ONCE
Test Result ONCE
03/27/25 20:10
Complete Blood Count/No Diff Urgent
Comprehensive Metabolic Panel Urgent
HCG, Serum Qualitative Screen Urgent
Abnormal Lab Results
03/27/25
20:10
MPV 10.8 H fL
(7.4-10.4)
BUN 18 H mg/dl
(7-17)
03/27/25 20:10
03/27/25 20:10
Vital Signs
Initial and Last Documented VS:
Initial Vital Signs
Temp Pulse Resp BP Pulse Ox
97.9 F 69 16 125/88 100
03/27/25 19:15 03/27/25 19:15 03/27/25 19:15 03/27/25 19:15 03/27/25 19:15
Last Documented Vital Signs
Temp Pulse Resp BP Pulse Ox
97.9 F 69 16 125/88 100
03/27/25 19:15 03/27/25 19:15 03/27/25 20:51 03/27/25 19:15 03/27/25 20:05
*Pulse Oximetry
SaO2: 100
Oxygen Mode of Delivery: Room air
Patient hypoxic: no
*Critical Care Note
Total Time (30-74mins, 75-104mins- exclusive of procedures): Not Applicable
Update Note
Update Note:
Patient presents to the Emergency Department with ___xuaw-ryq-mlyqsuu feeling associated with headache
Number and Complexity of Problems Addressed at the Encounter
� Chronic conditions affecting care:
� Acute Exacerbation and/or Progression of Chronic Illness:
� Differential Diagnosis includes: But not limited to electrolyte disorder, migraine, tension headache, etc. etc.
Amount and/or Complexity of Data to be Reviewed and Analyzed
� I performed an independent evaluation of and my interpretation is:
EKG: Read by me normal sinus rhythm, normal rate, normal axis, no acute ischemia
CT: Read by radiology NAD
Xrays:
Laboratory Studies: Generally unremarkable
Other:
� Review of other/old records reveals:
� Clinical information was obtained by an independent historian:
� Prescriptions/Medications Considered but not given:
� Further testing considered but not performed:
Risk of Complications and/or Morbidity or Mortality of Patient Management
� Social determinants of health affecting care:
� Discussion with other providers (PCP, Hospitalists, Consultants, etc):
� Escalation of care including admission/observation vs risk of discharge considered: Patient's neurological and entire physical exam unremarkable here. She describes 'weird' and 'uljz-tnd-fygeygp' sensation without objective
sensory or motor loss. No specific findings noted on exam. Discussed with patient portance of follow-up and reasons to return the emergency department.
ED Attending Note
-
Portions of this chart may have been created with voice recognition software.� Occasional wrong word or��sound alike� substitutions may have occurred due to the inherent limitations of voice recognition software.
Discharge Plan
Departure
Patient Disposition: Home (Routine Discharge)
Date of Disposition: 03/27/25
Time of Disposition: 21:10
Patient with high blood pressure during this ER visit?: Yes
Condition: Good
Discharge Problem:
Paresthesia
Instructions: Paresthesia (DC), Headaches in adults, BLOOD PRESSURE
Prescriptions:
No Action
cyclobenzaprine 10 MG tablet
10 mg PO TIDPRN PRN (Reason: pain in back/sides) Qty: 15 0RF
prednisone 50 mg tablet
50 mg PO DAILY Qty: 4 0RF
albuterol sulfate 2.5 mg /3 mL (0.083 %) solution for nebulization
2.5 mg inhalation Q4H PRN (Reason: shortness of breath or wheezing) Qty: 90 0RF
methylprednisolone [Medrol (Shaheen)] 4 mg tablets,dose pack
See Rx Instructions .ROUTE .COMPLEX Qty: 21 0RF
Rx Instructions:
orally per package directions
ondansetron 4 mg tablet,disintegrating
4 mg PO Q6H PRN (Reason: nausea and vomiting) Qty: 10 0RF
Referrals:
UNKNOWN - PT DOES,NOT KNOW [Family Provider]
Activity Restrictions/Additional Instructions:
PLEASE FOLLOW-UP WITH YOUR DOCTOR THIS WEEK. IF YOU DEVELOP INCREASING OR NEW HEADACHE, STIFFNESS, FEVER, RASH, CHEST PAIN, SHORTNESS OF BREATH, CHANGE IN SPEECH, CHANGE IN BALANCE, CHANGE IN VISION, OR OTHER WORRISOME SIGNS, PLEASE RETURN TO THE
ER IMMEDIATELY!
Interventions
Interventions:
*Risk Screen - Suicide Last Done: 03/27/25 19:17
*General Assessment Last Done: 03/27/25 20:51
*Neglect/Abuse Screening Last Done: 03/27/25 19:17
*ED- Fall Risk Assessment Last Done: 03/27/25 20:51
*ED COVID-19 Vaccine History Last Done: 03/27/25 20:51
ED- Neurological Assessment Last Done: 03/27/25 20:13
Discharge Date and Time
Print Language: AZERI
[2025-03-27 20:19] LABS: Hematocrit 40.4 % (37.0-47.0); Hemoglobin 13.7 g/dL (12.0-16.0); Mean Corp Hgb Conc. 33.9 g/dL (33.0-37.0); Mean Corpuscular Volume 84.2 fL (81.0-99.0); Platelet Count 248 10^3/uL (130-400); Red Cell Dist. Width 13.0 % (11.5-14.5)
[2025-03-27 20:45] LABS: HCG, Serum Qualitative Screen Negative
[2025-03-27 20:49] LABS: ALT (SGPT) 23 U/L (0-35); AST (SGOT) 24 U/L (14-36); Albumin 4.6 g/dl (3.5-5.0); Alkaline Phosphatase 54 U/L (38-126); Blood Urea Nitrogen 18 mg/dl (7-17); Calcium 9.5 mg/dl (8.4-10.2); Carbon Dioxide 24 mmol/L (22-30); Chloride 105 mmol/L (98-107); Glucose 95 mg/dl (70-99); Potassium 3.8 mmol/L (3.5-5.1); Sodium 136 mmol/L (135-145); Total Protein 7.5 g/dl (6.3-8.2); eGFR > 60.00
== END 2025-03-27 21:25 | disposition home or self-care (01) ==
LOC: EMR 19:12
PROVIDERS: EMERGENCY PHYSICIAN Emergency Medicine
DX: R20.2 Paresthesia of skin (principal); R42 Dizziness and giddiness; R11.0 Nausea; R20.0 Anesthesia of skin; R51.9 Headache, unspecified; R03.0 Elevated blood-pressure reading, without diagnosis of hypertension; G90.A Postural orthostatic tachycardia syndrome [POTS]; Z77.22 Contact with and (suspected) exposure to environmental tobacco smoke (acute) (chronic)
CPT/HCPCS: 99284; 70450; 80053; 84703; 85027; 93005

== ENCOUNTER 2025-03-30 05:46 | Observation (INO) | payer OTHER, SELFPAY ==
[2025-03-29 20:32] VITALS: BP 110/78
[2025-03-29 21:06] LABS: Hematocrit 42.2 % (37.0-47.0); Hemoglobin 14.3 g/dL (12.0-16.0); Mean Corp Hgb Conc. 33.9 g/dL (33.0-37.0); Mean Corpuscular Volume 83.7 fL (81.0-99.0); Nucleated Red Blood Cells % 0 %; Platelet Count 261 10^3/uL (130-400); Red Cell Dist. Width 13.2 % (11.5-14.5)
[2025-03-29 21:35] LABS: ALT (SGPT) 20 U/L (0-35); AST (SGOT) 23 U/L (14-36); Albumin 4.8 g/dl (3.5-5.0); Alkaline Phosphatase 56 U/L (38-126); Blood Urea Nitrogen 16 mg/dl (7-17); Calcium 9.6 mg/dl (8.4-10.2); Carbon Dioxide 25 mmol/L (22-30); Chloride 104 mmol/L (98-107); Glucose 88 mg/dl (70-99); HCG, Serum Qualitative Screen Negative; Potassium 4.0 mmol/L (3.5-5.1); Sodium 135 mmol/L (135-145); Total Protein 7.9 g/dl (6.3-8.2); eGFR > 60.00
[2025-03-29 23:21] VITALS: BMI 32.4
[2025-03-29 23:31] VITALS: BP 99/76
[2025-03-30] VITALS (16 sets, daily range): BP systolic 97–129; BP diastolic 59–103; PULSE 77–100; O2SAT 97; BMI 32.5
--- NOTE | 2025-03-30 00:13 | ED.GENMED ---
History of Present Illness
<Amber Duenas PA-C - Last Filed: 03/30/25 10:16>
General
Chief Complaint: Dizziness
Source: patient
Exam Limitations: none
Time Seen by Provider: 03/30/25 00:13
Nursing documentation reviewed up to this point in time: agreed with
History of Present Illness
History of Present Illness:
Note:
CHIEF COMPLAINT(S)
Numbness and tingling throughout the body.
HISTORY OF PRESENT ILLNESS
The patient is a 19-year-old with a pmh of POTS, migraines, who initially experienced numbness and tingling in her arms, which has progressively worsened over several days to involve her entire body. She describes the sensation as 'pins and needles'
that is constant and uncomfortable, exacerbated by movement. The symptoms started in her arms and have advanced to include her whole body, making daily activities increasingly challenging. She reports being unable to shower, drive, or walk due to
the severity of symptoms. Last night, she attempted to alleviate symptoms with a muscle relaxer, which provided no relief. This morning, upon attempting to stand, she felt numbness shooting from her feet upwards, causing her to fall back into bed
due to weakness and inability to stand. The patient had previously visited the ER on the , where a computed tomography scan of her head and blood work were performed, reportedly with normal results. She visited her primary care provider the
following day, who recommended resting and following up with neurology. She has an outpatient follow up with neurology next week.
Currently, she describes her vision as slow rather than double and experiences dizziness. Moving worsens the tingling sensation, and she is unable to ambulate independently.She denies headache today, neck pain, syncope episodes. Her gait
disturbances started today and stated that she couldnt walk without severe discomfort and could not stand without falling. She is currently wheel chair bound. She went to urgent care today and could not walk and so she was brought to the ER via EMS.
EXTERNAL RECORDS REVIEWED
Past urgent care records indicate normal computed tomography of the head and blood work.
CHRONIC MEDICAL CONDITIONS SIGNIFICANTLY AFFECTING CARE
- Migraines
- Postural Orthostatic Tachycardia Syndrome (POTS)
- Endometriosis
SOCIAL HISTORY
The patient denies recent travel.
REVIEW OF SYSTEMS
- Neurological: Numbness and tingling throughout the body; dizziness; slow visual perception but no diplopia.
- Musculoskeletal: Unable to stand or walk independently; difficulty performing movements.
- Vision: Slow visual perception reported.
- Respiratory: No respiratory complaints were noted.
PHYSICAL EXAM
Nursing notes reviewed and vital signs reviewed.
General: Patient is well appearing and in no acute distress; non-toxic
Skin: Warm and dry, no rashes or lesions
Head: Normocephalic, atraumatic
Eyes: Sclera non-icteric. EOMs intact.
Cardiac: Regular rate and rhythm, no murmurs
Peripheral Vascular:
Pulm: Normal respiratory effort
Abdomen: No abdominal tenderness
Musculoskeletal:
Neuro: CN II-XII intact, no focal neurologic deficits. Normal finger to nose. Patient unable to perform heel to bajwa. Motor weakness noted in b/l lower extremities. Normal DTRs. Patient is able to stand up with me but with a lot of discomfort. When
she attempts to take a step towards me, she falls to her left side.
Psychiatric: Appropriate mood and affect.
PROBLEM LIST
Acute:
- Worsening numbness and tingling
- Inability to walk
Chronic:
- Migraines
- Postural Orthostatic Tachycardia Syndrome
- Endometriosis
PLAN
- Add additional blood tests including Lyme disease and vitamin deficiencies.
- Consider administration of Gabapentin for neuropathic symptoms.
- Administer intravenous fluids due to mild hypotension.
- Observation and possible admission for further evaluation by neurology.
- Close clinical monitoring and potential neurology consultation if available.
DIFFERENTIAL DIAGNOSIS
The Differential Diagnosis includes, in no particular order and is not limited to:
1. Multiple Sclerosis
2. Peripheral Neuropathy
3. Guillain-[place] Syndrome
Transverse Myelitis
4. Lyme Disease
5. Vitamin B12 Deficiency
6. Neuropathy secondary to POTS
7. Functional Neurological Disorder
8. Conversion Disorder
9. Migrainous Aura
10. Post-Infectious Neuropathy
CHART REVIEW
Reviewed visit from 03/27/25
MDM/DISPOSITION
The patient is a 19-year-old with a pmh of POTS, migraines, who initially experienced numbness and tingling in her arms, which has progressively worsened over several days to involve her entire body. She describes the sensation as 'pins and needles'
that is constant and uncomfortable, exacerbated by movement. Symptoms have gotten progressively worse and now have gotten to the point of limiting her ability to do ADLs and limiting her ability to ambulate. On my exam, CN II-XII intact, no focal
neurologic deficits. Normal finger to nose. Patient unable to perform heel to bajwa. Motor weakness noted in b/l lower extremities. Normal DTRs. Patient is able to stand up with me but with a lot of discomfort. When she attempts to take a step
towards me, she falls to her left side. She cannot ambulate without falling. She will require admission for neurologic evaluation and further workup. ED Attending aware.
Past History
<Amber Duenas PA-C - Last Filed: 03/30/25 10:16>
Past History
ED Past Medical History: Other (POTS, endometriosis, constipation)
ED Past Surgical History: Other ([place] teeth, laparotomy x 5, Ortho, ear tubes)
Social History
Tobacco: 2nd hand smoke exposure
Alcohol: None
Drug: None and Marijuana
Personal: Other
Living: with family
Employment: Employed
Review of Systems
<Amber Duenas PA-C - Last Filed: 03/30/25 10:16>
Review of Systems
All Other Systems: ROS reviewed and negative except as documented in HPI and ROS
Phy Exam
<Amber Duenas PA-C - Last Filed: 03/30/25 10:16>
Physical Exam
Physical Exam:
see hpi
Course
<Amber SalinasSyed Duenas PA-C - Last Filed: 03/30/25 10:16>
Orders/Labs/Results
Orders:
Orders
03/29/25 20:34
Electrocardiogram (*1) Urgent
Reason for Study: Vertigo / Dizzy
EKG- Treatment ONCE
Test Result ONCE
03/29/25 20:48
Complete Blood Count/With Diff Urgent
Comprehensive Metabolic Panel Urgent
HCG, Serum Qualitative Screen Urgent
03/30/25 00:55
0.9% Sodium Chloride 1000 ml [Nss] 1,000 ml IV BOLUS
03/30/25 00:56
Gabapentin [Neurontin] 300 mg PO NOW STA
03/30/25 01:21
B12 [Vitamin B12] Urgent
Lyme Progressive Urgent
TSH Reflex To Free T4 Urgent
Vitamin B9 [Folate] Urgent
03/30/25 02:58
Ketorolac [Toradol] 15 mg IV NOW STA
03/30/25 04:04
Admit/Transfer Patient As Directed
Co-Sign Provider:
Level of Care: Observation services
Assign to:: Medical/Surgical
Physician / Group: [facility]
Diagnosis: Paresthesias
PRN Pain Medication Management As Directed
May give lesser potent ordered pain med per pt: Yes
preference::
Protocol:: Medication orders for pain may be administered in a
manner that supports deferring to patient preference
when the pt is:
- Requesting an ordered lesser potent pain medication.
Least to most potent pain medications are defined
as: acetaminophen < NSAID < tramadol < opioids
(morphine, oxycodone, hydromorphone).
- Requesting a lesser dose of the same medication IF
ORDERED.
- Requesting a less intrusive route of administration
if both routes are prescribed by the provider (PO <
IV).
03/30/25 04:05
Code Status As Directed
Resuscitation Status: Full Code
03/30/25 05:54
Acetaminophen [Tylenol] 650 mg PO Q4HPRN PRN
03/30/25 05:54
Activity As Directed
Activity Level: Ambulate
With Assistance
I/O [Intake/ Output] As Directed
Frequency: Per unit guidelines
Neurological Checks As Directed
Frequency: q4h
Pneumatic Compression Sleeves As Directed
Type: Knee high
Vital Signs As Directed
Frequency: Per unit guidelines
Oxygen Therapy [O2 Therapy] [RESP] Routine
Titrate/Wean O2 to maintain O2 sat greater than (%): 94
PT Consult [Pt Eval And Treat] Routine
Activity Level: Ambulate
With Assistance
DX Deep Vein Thrombosis Video Routine
03/30/25 Breakfast
Regular
At Your Request: Full Participation
03/30/25 09:04
Basic Metabolic Panel IN AM
CRP [C-Reactive Protein] Routine
Complete Blood Count/No Diff IN AM
ESR [Erythrocyte Sed Rate] Routine
Ferritin Routine
Glycohemoglobin (HgbA1c) Routine
Iron Routine
Magnesium IN AM
Total Iron Binding Routine
Abnormal Lab Results
03/29/25
20:48
MPV 11.0 H fL
(7.4-10.4)
03/29/25 20:48
03/29/25 20:48
Vital Signs
Initial and Last Documented VS:
Initial Vital Signs
Temp Pulse Resp BP Pulse Ox
98.3 F 97 16 110/78 98
03/29/25 20:32 03/29/25 20:32 03/29/25 20:32 03/29/25 20:32 03/29/25 20:32
Last Documented Vital Signs
Temp Pulse Resp BP Pulse Ox
97.4 F 100 18 115/91 97
03/30/25 08:06 03/30/25 09:09 03/30/25 08:06 03/30/25 09:09 03/30/25 08:08
<Byron Hidalgo MD - Last Filed: 03/30/25 01:12>
Orders/Labs/Results
Orders:
Orders
03/29/25 20:34
Electrocardiogram (*1) Urgent
Reason for Study: Vertigo / Dizzy
EKG- Treatment ONCE
Test Result ONCE
03/29/25 20:48
Complete Blood Count/With Diff Urgent
Comprehensive Metabolic Panel Urgent
HCG, Serum Qualitative Screen Urgent
03/30/25 00:55
0.9% Sodium Chloride 1000 ml [Nss] 1,000 ml IV BOLUS
03/30/25 00:56
Gabapentin [Neurontin] 300 mg PO NOW STA
03/30/25 01:21
B12 [Vitamin B12] Urgent
Lyme Progressive Urgent
TSH Reflex To Free T4 Urgent
Vitamin B9 [Folate] Urgent
03/30/25 02:58
Ketorolac [Toradol] 15 mg IV NOW STA
03/30/25 04:04
Admit/Transfer Patient As Directed
Co-Sign Provider:
Level of Care: Observation services
Assign to:: Medical/Surgical
Physician / Group: Nicholas
Diagnosis: Paresthesias
PRN Pain Medication Management As Directed
May give lesser potent ordered pain med per pt: Yes
preference::
Protocol:: Medication orders for pain may be administered in a
manner that supports deferring to patient preference
when the pt is:
- Requesting an ordered lesser potent pain medication.
Least to most potent pain medications are defined
as: acetaminophen < NSAID < tramadol < opioids
(morphine, oxycodone, hydromorphone).
- Requesting a lesser dose of the same medication IF
ORDERED.
- Requesting a less intrusive route of administration
if both routes are prescribed by the provider (PO <
IV).
03/30/25 04:05
Code Status As Directed
Resuscitation Status: Full Code
03/30/25 05:54
Acetaminophen [Tylenol] 650 mg PO Q4HPRN PRN
03/30/25 05:54
Activity As Directed
Activity Level: Ambulate
With Assistance
I/O [Intake/ Output] As Directed
Frequency: Per unit guidelines
Neurological Checks As Directed
Frequency: q4h
Pneumatic Compression Sleeves As Directed
Type: Knee high
Vital Signs As Directed
Frequency: Per unit guidelines
Oxygen Therapy [O2 Therapy] [RESP] Routine
Titrate/Wean O2 to maintain O2 sat greater than (%): 94
PT Consult [Pt Eval And Treat] Routine
Activity Level: Ambulate
With Assistance
DX Deep Vein Thrombosis Video Routine
03/30/25 Breakfast
Regular
At Your Request: Full Participation
03/30/25 09:04
Basic Metabolic Panel IN AM
CRP [C-Reactive Protein] Routine
Complete Blood Count/No Diff IN AM
ESR [Erythrocyte Sed Rate] Routine
Ferritin Routine
Glycohemoglobin (HgbA1c) Routine
Iron Routine
Magnesium IN AM
Total Iron Binding Routine
Abnormal Lab Results
03/29/25
20:48
MPV 11.0 H fL
(7.4-10.4)
03/29/25 20:48
03/29/25 20:48
Vital Signs
Initial and Last Documented VS:
Initial Vital Signs
Temp Pulse Resp BP Pulse Ox
98.3 F 97 16 110/78 98
03/29/25 20:32 03/29/25 20:32 03/29/25 20:32 03/29/25 20:32 03/29/25 20:32
Last Documented Vital Signs
Temp Pulse Resp BP Pulse Ox
97.4 F 100 18 115/91 97
03/30/25 08:06 03/30/25 09:09 03/30/25 08:06 03/30/25 09:09 03/30/25 08:08
<Amber Duenas PA-C - Last Filed: 03/30/25 10:16>
*Pulse Oximetry
SaO2: 98
Oxygen Mode of Delivery: Room air
Patient hypoxic: no
*Critical Care Note
Total Time (30-74mins, 75-104mins- exclusive of procedures): Not Applicable
ED Attending Note
<Amber Duenas PA-C - Last Filed: 03/30/25 10:16>
-
Portions of this chart may have been created with voice recognition software.� Occasional wrong word or��sound alike� substitutions may have occurred due to the inherent limitations of voice recognition software.
<Byron Hidalgo MD - Last Filed: 03/30/25 01:12>
ED Attending Note
Patient seen and examined by attending physician: Yes
I performed the substantive portion of visit, reviewed & personally made and approve the management plan that is documented in note by myself or MARS.: Yes
ED Attending Note:
19-year-old female complaining of progressive paresthesias over a week. Now having trouble walking which has progressed. No headaches no focal symptoms. History of POTS.
On exam patient is nontoxic at rest in no distress. Normocephalic atraumatic. Speech is normal. Cranial nerves II through XII intact. [id number] normal. No drift. Patient has difficulty raising both her legs off the bed. She can lift them
some. Effort test was checked end of the heel and she does appear to be trying. It is symmetrical. I did note mild but present bilateral patellar reflexes. She apparently was unable to walk on her own.
Differential would include myelitis, Guillain-[place]� variant, MS, supratentorial. Needs a neurologic evaluation. Will admit for further care
Discharge Plan
Departure
Patient Disposition: Admit
Date of Disposition: 03/30/25
Time of Disposition: 01:54
Admit to: Med/Surg
Presentation/result/management discussed w/ accepting MD/DO: Hospitalist
Condition: Fair
Discharge Problem:
Gait disturbance, Paresthesias
Interventions
Interventions:
*Risk Screen - Suicide Last Done: 03/29/25 23:21
*General Assessment Last Done: 03/29/25 23:21
*Neglect/Abuse Screening Last Done: 03/29/25 23:21
*ED- Fall Risk Assessment Last Done: 03/29/25 23:21
*ED COVID-19 Vaccine History Last Done: 03/29/25 23:21
*Nursing Disposition Last Done: 03/30/25 05:13
ED- Neurological Assessment Last Done: 03/29/25 23:21
ED Swallowing Screen Last Done: 03/29/25 23:21
Discharge Date and Time
Discharge Date/Time: 03/30/25 05:14
[2025-03-30] MEDS: NEURONTIN 300 MG PO (01:12)
[2025-03-30] MEDS: NSS 1000 IV (01:21)
[2025-03-30 03:06] LABS: Folate 6.9 ng/ml (2.76-20); Vitamin B12 427 pg/ml (239-931)
[2025-03-30] MEDS: TORADOL 15 MG IV (03:06)
--- NOTE | 2025-03-30 04:09 | HPS.HSE ---
Family Physician
-
Family Physician: Iraida Cortes
Chief Complaint
-
Numbness / Tingling
History of Present Illness
Patient is a 19y F with PMH significant for endometriosis and POTS who presents to ED complaining of numbness and tingling of the hands and feet. Patient states that her symptoms started on 03/27. She noted 'pins and needles' sensation in the
hands, the legs from the hips to the toes and across the upper back / neck. She was seen in the ED here for evaluation which was essentially unremarkable. She states that her symptoms have persisted since that time and the discomfort has become
more severe. She states that she is now limited in activities due to intense sensation of numbness / tingling. Symptoms are worse with movement, weight bearing, etc.
No headache. No specific / noted weakness. No vision changes.
No preceding fall, injury, trauma, etc.
Patient is taking Wegovy for weight loss. She started this medication about 8 weeks ago and increased to the 1mg dose about 2 weeks ago.
Medical History
Past Medical History
Past Medical History: Reports Other
Additional Past Medical History:
Endometriosis
POTS
Obesity
Past Surgical History: Reports Other
Additional Past Surgical History:
Ex Lap
Appendectomy
Social History
Tobacco: Non-smoker
Alcohol: None
Drug: Marijuana (Occasional)
Family History
Family History: Other (Mother: DVT Father: HTN)
Allergies / Home Medications
Allergies reflects when Allergies were last updated in [employer].
Home Medications with original date entered in [employer]
Allergy/Medication List:
Allergies
Allergy/AdvReac Type Severity Reaction Status Date / Time
No Known Allergies Allergy Verified 03/29/25 20:34
Home Medications
melatonin 10 mg tablet 10 mg PO HS PRN sleep 03/30/25
semaglutide (weight loss) 1 mg/0.5 mL subcutaneous pen injector (Wegovy) 1 mg SC QWEEK 03/30/25
Review of Systems
-
History Source: Patient
A 12 point ROS was completed and negative except as noted: Yes
Constitutional: Denies Fever, Fatigue or Chills
EENT: Denies Sore Throat
Respiratory: Denies Cough or Trouble Breathing
Cardiac: Denies Chest Pain, Diaphoresis or Palpitations
Abdomen/GI: Denies Abdominal Pain, Nausea, Vomiting or Diarrhea
: Denies Dysuria, Frequency or Flank Pain
Musculoskeletal: Denies Joint Pain, Muscle Pain or Edema
Neurological: Reports Numbness and Other (pins and needles); Denies Dizzy, Headache or Weakness
Psych: Denies Depression or Anxiety
Physical Exam
Vital Signs
Vital Signs
Temp Pulse Resp BP Pulse Ox
98.3 F 70 16 108/81 97
03/29/25 20:32 03/30/25 03:15 03/30/25 03:15 03/30/25 01:00 03/30/25 03:15
Physical Exam
General: Other (19y F in no distress.)
HEENT: Moist mucous membranes and PERRLA
Respiratory: Clear; No Wheezes, Rales or Rhonchi
Cardiac: S1/S2 and Regular Rhythm; No Murmur
GI: Soft, Non Tender, Non Distended and Normal Bowel Sounds
Musculoskeletal: No Clubbing, No Cyanosis and No Edema
Neuro: AO x 3, No Motor Deficits and Other (Reflexes intact and symmetric. No appreciable motor weakness. Reported paresthesia / pins and needles sensation with palpation.)
Laboratory Results
-
03/29/25 20:48
03/29/25 20:48
Laboratory Results
Total Bilirubin 0.7 mg/dl (0.2-1.3) 03/29/25 20:48
AST 23 U/L (14-36) 03/29/25 20:48
ALT 20 U/L (0-35) 03/29/25 20:48
Alkaline Phosphatase 56 U/L (38-126) 03/29/25 20:48
Troponin I Cancelled 03/29/25 20:34
Impression/Plan
-
A/P: Patient is a 19y F with PMH significant for POTS and endometriosis who presents to ED complaining of paresthesias for one week.
Paresthesias
- Observe overnight for further evaluation and treatment.
- No focal motor deficits, abnormal reflexes, etc.
- CT head unremarkable. Labs thus far unremarkable.
- ? dysesthesia secondary to Wegovy / recently increased dose?
- Will hold this medication for now.
- PT eval.
- Neuro evaluation for additional recommendations.
POTS
Endometriosis
- Stable.
DVT Prophylaxis: SCDs
Code Status: Full
--- NOTE | 2025-03-30 06:24 | PTCARENOTE ---
Received pt from ED into room 2247 via stretcher. pt oriented to room and call button. pt fiance at bedside. pt reports numbness/tingling to b/l upper and lower extremities, as well as dizziness and nausea. pt states 'the room is spinning.' pt able
to stand and pivot to the standing scale/bed. pt resting in bed. Call mcneal within reach.
--- NOTE | 2025-03-30 07:32 | PTCARENOTE ---
While trying to get her her am labs, she complained of nausea and dizziness. I gave her hailey sharan to help relieve her nausea as no medications were ordered. I encouraged her drink more fluids as I had difficulty drawing her labs and was
unsuccessful. I will pass on symptoms to her physician.
--- NOTE | 2025-03-30 08:32 | CON.NEURO4 ---
Addendum entered and electronically signed by Randy Sanchez MD 03/30/25 10:45:
Studies reviewed.
I have personally examined the patient. I reviewed and agree with the BOOTH USHER's Note.
My addenda:
Awake, alert, interactive. No acute distress.
Speech intact.
Follows 2-step requests w/o difficulty. No tremor.
Extra-ocular movements grossly intact.
Facial movements full and symmetric. Hearing intact to normal conversational volume.
Normal UE movements bilaterally.
Neck: full ROM.
Chest: no dyspnea
Heart: no JVD
Ext: (-) Clubbing, (-) Cyanosis, (-) Edema
IMPRESSIONS/RECOMMENDATIONS:
Abrupt onset of paresthesias followed by expansion of the paresthesias.
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 Differential diagnosis includes metabolic disturbance or transverse myelitis although without presence of bladder or bowel dysfunction, that is less likely. There is no evidence at this
time to support Guillain-Mcfarlane� syndrome.
Check MRI of brain and cervical spine with and without contrast
Check blood work but metabolic abnormalities
Rehabilitation evaluations and treatment
Provide pregabalin 50 mg 3 times a day for discomfort reduction
Initiate cyanocobalamin 1000 mcg daily based on low normal results (approximately 400) in hopes of reducing a possible metabolic cause
D/W patient / nursing
All questions answered.
Will continue to follow pending results. Patient should eventually follow-up with her usual outpatient neurologist
Original Note:
Consultation - Neurology 4
-
CONSULTING PHYSICIAN: Randy Sanchez MD
REFERRING PHYSICIAN: Hospitalists/Dr. Mortensen
DICTATED BY: SHARONAD Gotti
DATE/TIME OF REQUEST: 03/29/25
DATE/TIME OF CONSULTATION: 03/30/25
Reason for Consultation: Numbness
History of Present Illness:
This is a 19-year-old right- female who has presented to the hospital with report of paresthesias. Patient reports that about one week ago she was folding laundry when she suddenly developed a pins and needles sensation in bilateral hands extending
up her arms. This persisted, and about four days later she noted that the tingling sensation spread down her trunk and to bilateral legs, most prominent in her feet. Yesterday (03/29/25), she notes that she went to stand up and she had a sharp pins
and needles sensation shooting up her legs. She also felt dizzy, her eyes felt heavy, and she was dropping things in both hands. She felt unable to perform her ADLs or walk, and presented to urgent care prior to being transported by EMS to the
emergency department. She notes that the sensation is constant, the only time she has relief is when she is sleeping. If she puts pressure on a body part it makes the sensation worse. She also notes that with walking she felt like she was leaning
more to the left. She denies any headache, vision changes, speech/swallowing difficulty, and changes in bowel/bladder. She has been on Wegovy for several months but her dose was increased about two weeks ago. She denies any recent fever, illness, or
events like this in the past. She is followed as an outpatient by [facility] for migraine without aura. She reports having an MRI brain about 1-2 years ago at a [place] facility that she reports was normal. She is only taking
Naproxen as needed for migraine relief, she has about one migraine per month.
Past Medical History: Endometriosis, POTS, obesity
Surgical History: Appendectomy, ear tubes, ortho
Family History: Reviewed and noncontributory.
Social History: Denies tobacco, alcohol, and illciit drug us.
Allergies: No known allergies.
Home Medications:
Review of Symptoms:
Patient denies any fever, headache, chest pain, shortness of breath, GI or symptoms.
�Per the HPI.�All systems are reviewed negative except above.
Physical Exam:
The patient is afebrile, abdomen is nondistended, breathing is unlabored, skin is warm and dry, no edema.
Neurologic Examination:
The patient is awake, alert and oriented x 3. She is able to follow commands and answer questions appropriately. There is no aphasia or dysarthria. On cranial nerve assessment, pupils are 3 mm bilateral, round and reactive to light and
accommodation. Visual garcia are full. Extraocular movements are intact. Facial sensations are intact and bilaterally symmetrical, there is no facial asymmetry. Hearing is intact bilaterally to normal conversation volume. Tongue palate and uvula are
midline. Sternocleidomastoid strengths are full bilaterally. Motor strengths are 5/5 bilateral upper and lower extremities on medical research Sharon scale. There is no drift or involuntary movement noted. Deep tendon reflexes are 2+ bilateral
upper and lower extremities, 3+ beats of clonus left Achilles, 2+ beats clonus right Achilles, mildly positive Ewing's on the left, and Babinski is absent bilaterally. Sensations of touch, temperature and vibration are intact and bilaterally
symmetrical. Coordination is intact by finger to nose and heel to bajwa bilaterally.
Lab Results: See below.
Neuro Imaging:
1. CT Head 03/27/25: No acute intracranial abnormality noted.
Differentials for the patient's presentation include:
1. Paresthesias; unclear etiology, possibilities include metabolic disturbance, demyelination, or functional neurological disorder.
Patient has the following risk factors for their symptoms: Wegovy usage.
Recommendations:
-MRI brain and cervical spine w/ and w/o contrast pending.
-Start pregabalin 50mg three times a day for discomfort.
-Checking blood work for metabolic abnormalities.
-Telemetry monitoring.
-Check orthostatic vital signs.
-PT/OT evaluations.
-DVT prophylaxis.
-Follow-up with usual [place] [facility]ist as an outpatient.
Discussed patient care with: Dr. Sanchez, the patient
Vital Signs and Labs
-
Vital Signs and Labs:
Vital Signs
Temp Pulse Resp BP Pulse Ox
97.4 F 100 18 115/91 97
03/30/25 08:06 03/30/25 09:09 03/30/25 08:06 03/30/25 09:09 03/30/25 08:08
Lab Results
03/30/25 09:04
Sodium 135 mmol/L (135-145) 03/29/25 20:48
Potassium 4.0 mmol/L (3.5-5.1) 03/29/25 20:48
BUN 16 mg/dl (7-17) 03/29/25 20:48
Glucose 88 mg/dl (70-99) 03/29/25 20:48
Calcium 9.6 mg/dl (8.4-10.2) 03/29/25 20:48
Vitamin B12 427 pg/ml (239-931) 03/30/25 01:21
Medications
-
Active Medications
Generic Name Dose Route Start Last Admin
Trade Name Freq PRN Reason Stop Dose Admin
Acetaminophen 650 mg 03/30/25 05:54
Acetaminophen 325 Mg Tablet PO 04/27/25 05:53
Q4HPRN PRN
Mild Pain / Temp > 101
Cyanocobalamin 1,000 mcg 03/30/25 10:00 03/30/25 09:11
Cyanocobalamin 1,000 Mcg Tablet PO 04/27/25 09:59 1,000 mcg
DAILY MARGARET Administration
Pregabalin 50 mg 03/30/25 16:00
Pregabalin 50 Mg Capsule PO 04/27/25 15:59
TID MARGARET
Home Medications
�Medication �Instructions �Recorded
melatonin 10 mg tablet 10 mg PO HS PRN sleep 03/30/25
naproxen 500 100 ml PO PRN PRN Migraines 03/30/25
ondansetron HCl 4 mg tablet 4 mg PO Q4HPRN PRN Nausea 03/30/25
semaglutide (weight loss) 1 mg/0.5 1 mg SC QWEEK 03/30/25
mL subcutaneous pen injector
(Edy)
[2025-03-30] MEDS: VITAMIN B-12 1000 MCG PO (09:11)
--- NOTE | 2025-03-30 09:14 | PTCARENOTE ---
Addendum entered by Lacey Hoang RN 03/30/25 09:16:
BP lying - 122/76 with a HR of 77
BP Sitting - 123/79 with a HR of 88
BP standing - 115/91 with a HR of 100
Original Note:
While doing orthostatic BPs. the patient complained of dizziness while sitting and standing. In addition, she complained of 'pressure' in her feet while she was standing.
[2025-03-30 09:31] LABS: Hematocrit 38.9 % (37.0-47.0); Hemoglobin 12.8 g/dL (12.0-16.0); Mean Corp Hgb Conc. 32.9 g/dL (33.0-37.0); Mean Corpuscular Volume 85.7 fL (81.0-99.0); Platelet Count 243 10^3/uL (130-400); Red Cell Dist. Width 13.1 % (11.5-14.5)
[2025-03-30 10:12] LABS: Blood Urea Nitrogen 16 mg/dl (7-17); Calcium 8.8 mg/dl (8.4-10.2); Carbon Dioxide 24 mmol/L (22-30); Chloride 106 mmol/L (98-107); Estimated Creatinine Clearance 112 ml/min; Glucose 81 mg/dl (70-99); Iron 79 ug/dl (37-170); Magnesium 1.8 mg/dl (1.6-2.3); Potassium 3.9 mmol/L (3.5-5.1); Sodium 137 mmol/L (135-145); eGFR > 60.00
[2025-03-30 10:15] LABS: C-Reactive Protein 6.70 mg/L (0.0-10.00)
[2025-03-30 10:21] LABS: Total Iron Binding Capacity 295 ug/dl (265-497)
[2025-03-30 10:49] LABS: Glycohemoglobin (HgbA1c) 4.9 % (4.0-5.6)
[2025-03-30 10:50] LABS: Ferritin 36.9 ng/ml (6.24-137)
[2025-03-30] MEDS: FEOSOL 325 MG PO (12:45)
--- NOTE | 2025-03-30 12:47 | PTCARENOTE ---
Found the patient oob and walking around post her MRI. I asked her how she was feeling and she said that she has 'pins and needles down my legs and feet.' 'It felt worse just sitting and it feels a little better walking.' I asked her if she was
dizzy and she stated, 'just a little, it's not as bad.' I explained to her that she shouldn't be walking around by herself if she is dizzy and to ring for assistance.
--- NOTE | 2025-03-30 13:02 | CM ---
Addendum entered by Abbi Perales RN 03/30/25 14:19:
PT/OT recommending outpatient PT/OT. CM to follow
Original Note:
Chart reviewed. Patient is independent of ADLS, lives with her fiance and grandparents in a 2 [address], 0 CAPRICE, 0 DME. Patient having paraesthesias waiting on PT evaluation to see functional assessment. CM to follow
[2025-03-30] MEDS: FERRLECIT 110 MG IV (15:13)
[2025-03-30] MEDS: FLUSH (NSS) 2 FLUSH IV (15:16)
--- NOTE | 2025-03-30 15:44 | W.PN.HOSP.TC ---
Today's Communication/Plan
-
Assessment / Plan
Assessment / Plan
General: No Apparent Distress, Comfortable and Conversant
HEENT: NormoCephalic, Moist mucous membranes, Atraumatic
Respiratory: Clear and Non Labored Respirations
Cardiac: S1/S2 and Regular Rhythm; No Rub or Gallop
GI: Soft, Non Tender, Non Distended and Normal Bowel Sounds
Musculoskeletal: No Edema, no deformity
Skin: Warm and dry
: NO Lerma
Neuro: Awake, Alert, paresthesias in bilateral hands and feet, no focal motor deficits
Psych: Calm and Intact Judgment/Insight
Ms. Lim is a 19-year-old female with a medical history of endometriosis, POTS, and reported history of Chiari malformation who presented with paresthesias of her bilateral hands and feet. Her symptoms began on 03/27 initially starting then
spreading to her hips and downward to her feet and upward across her back to her shoulders. Initial CT imaging on 03/27 was unremarkable at which point she was discharged home. She returned 2 days later with progression of her symptoms.
Bilateral upper and lower extremity paresthesias:
- MRI of brain and cervical spine unremarkable except for low-lying cerebellar tonsils up to 5 mm below the level of the foramen magnum with no evidence of crowding or mass effect at the craniocervical junction
- Labs are generally unremarkable except for elevated ESR and low normal ferritin and percent saturation
- Neurology recommending pregabalin and starting on iron supplementation, also giving daily B12, no indication currently for neurosurgical intervention
- PT/OT with no significant needs currently
- Will monitor for improvement of symptoms with current treatment
- Will need ongoing outpatient neurology follow-up
DVT prophylaxis: SCDs
CODE STATUS: Full code
Total time spent on today's encounter was 40 minutes
Anticipated Discharge: 24 - 48 hours
Subjective/Interval History
-
Date of Service: March 30, 2025
Patient was seen and examined at bedside. She continues to have paresthesias in her arms and legs. Finds it difficult to walk due to the symptoms.
Objective Data
-
Labs:
Laboratory Results
03/30/25
09:04
WBC 6.6
Hgb 12.8
Hct 38.9
Plt Count 243
Sodium 137
Potassium 3.9
Chloride 106
Carbon Dioxide 24
BUN 16
Creatinine 0.7
Glucose 81
Calcium 8.8
Vital Signs:
Vital Signs
Temp Pulse Resp BP Pulse Ox
98.1 F 82 15 129/82 97
03/30/25 15:15 03/30/25 13:00 03/30/25 15:15 03/30/25 12:49 03/30/25 15:15
Review of Systems
-
History Source: Patient
All other systems: Reviewed and negative
Neuro: Reports Numbness (Bilateral arms and legs)
Physical Exam
-
General: No Apparent Distress
[2025-03-30] MEDS: LYRICA 50 MG PO ×2 (16:35→21:06)
--- NOTE | 2025-03-30 22:07 | PTCARENOTE ---
Assumed care of the pt @ 1900. Pt is AAOx3 with SO at bedside. SR on the monitor VSS. Pt c/o dizziness P. Padilla MCDONOUGH aware. Pt instructed to call for nurse prior to ambulating and use walker. Pt agreed to plan. Call mcneal within reach
[2025-03-30] MEDS: ALPRAZOLAM ODT 0.25 MG PO (23:17)
[2025-03-31 01:55] VITALS: BP 114/70
[2025-03-31 07:21] VITALS: BP 108/64
[2025-03-31] MEDS: FEOSOL 325 MG PO (09:17)
[2025-03-31] MEDS: LYRICA 50 MG PO (09:17)
[2025-03-31] MEDS: VITAMIN B-12 1000 MCG PO (09:17)
--- NOTE | 2025-03-31 11:14 | CM ---
Chart reviewed. Patient is independent of ADLS, lives with her fiance and grandparents in a 2 [address], 0 CAPRICE, 0 DME. Patient with no needs. Plan is for the patient to return home. CM to follow
--- NOTE | 2025-03-31 11:51 | W.PN.NEURO.1 ---
Today's Communication / Plan
-
Outpatient psychological evaluation and treatment with cognitive behavioral therapy
Agree with outpatient neurological evaluation as already planned
Continue pregabalin 50 mg 3 times a day to reduce discomfort
Patient was provided with iron IV and by mouth due to relatively low ferritin level
Continue newly initiated cyanocobalamin 1000 mcg daily
Neuro Assessment/Plan
Assessment
Acute onset generalized body paresthesias
With unremarkable neuroimaging of the brain and cervical spine as well as present reflexes diffusely, most likely diagnosis is functional neurological disorder
Presence of small sized 3 mm extension of cerebellar tonsils is not in need of neurosurgical evaluation or treatment.
Plan
Outpatient psychological evaluation and treatment with cognitive behavioral therapy
Agree with outpatient neurological evaluation as already planned
Continue pregabalin 50 mg 3 times a day to reduce discomfort
Patient was provided with iron IV and by mouth due to relatively low ferritin level
Continue newly initiated cyanocobalamin 1000 mcg daily
Will follow as needed
Subjective/Objective
Subjective Data
Date of Service: March 31, 2025
Objective Data
Vital Signs
Temp Pulse Resp BP Pulse Ox
36.3 C 70 20 108/64 94
03/31/25 07:21 03/31/25 08:00 03/31/25 07:21 03/31/25 07:21 03/31/25 09:47
Lab Results
03/30/25 09:04
03/30/25 09:04
Sodium 137 mmol/L (135-145) 03/30/25 09:04
Potassium 3.9 mmol/L (3.5-5.1) 03/30/25 09:04
BUN 16 mg/dl (7-17) 03/30/25 09:04
Glucose 81 mg/dl (70-99) 03/30/25 09:04
Calcium 8.8 mg/dl (8.4-10.2) 03/30/25 09:04
Vitamin B12 427 pg/ml (410-851) 03/30/25 01:21
Patient Allergies
No Known Allergies Allergy (Verified 03/29/25 20:34)
Data Reviewed
-
MRI Head: Report Reviewed and Image Reviewed
MRI Cervical Spine: Report Reviewed and Image Reviewed
Labs: Pending and Report Reviewed
Reviewed with: Physician
Old Records: Summarized
Past History
Past History
ED Past Medical History: Other (POTS, endometriosis, constipation, functional neurological disorder)
ED Past Surgical History: Other ([place] teeth, laparotomy x 5, Ortho, ear tubes)
Social History
Tobacco: 2nd hand smoke exposure
Alcohol: None
Drug: None and Marijuana
Personal: Other
Living: with family
Employment: Employed
Family History
Family History: Other (Reviewed and noncontributory)
Medications
-
Medications:
Generic Name Dose Route Start Last Admin
Trade Name Freq PRN Reason Stop Dose Admin
Acetaminophen 650 mg 03/30/25 05:54
Acetaminophen 325 Mg Tablet PO 04/27/25 05:53
Q4HPRN PRN
Mild Pain / Temp > 101
Alprazolam 0.25 mg 03/30/25 22:34 03/30/25 23:17
Alprazolam 0.25 Mg Oral Disintegrating Tab PO 04/27/25 22:33 0.25 mg
Q6HPRN PRN Administration
anxiety
Cyanocobalamin 1,000 mcg 03/30/25 10:00 03/31/25 09:17
Cyanocobalamin 1,000 Mcg Tablet PO 04/27/25 09:59 1,000 mcg
DAILY MARGARET Administration
Ferrous Sulfate 325 mg 03/30/25 11:00 03/31/25 09:17
Ferrous Sulfate 325 Mg Tablet PO 04/27/25 10:59 325 mg
DAILY MARGARET Administration
Pregabalin 50 mg 03/30/25 16:00 03/31/25 09:17
Pregabalin 50 Mg Capsule PO 04/27/25 15:59 50 mg
TID MARGARET Administration
Sodium Chloride 0 flush 03/30/25 11:00 03/30/25 15:16
Sodium Chloride 0.9% (Flush) Syringe IV 04/27/25 10:59 2 flush
PER PROTOCOL MARGARET Administration
[2025-03-31 12:02] VITALS: BP 112/77
[2025-03-31 12:11] VITALS: BP 122/74
--- NOTE | 2025-03-31 12:54 | W.DCSUMMARY ---
Discharge Summary
Discharge Data
Date of Admission: 03/30/25
Date of Discharge: 03/31/25
Total time spent discharging patient (in min): 35
-
Pending Results: No
Hospital Course
Ms. Lim is a 19-year-old female with a medical history of endometriosis, POTS, and reported history of Chiari malformation who presented with paresthesias of her bilateral hands and feet. Her symptoms began on 03/27 initially starting then
spreading to her hips and downward to her feet and upward across her back to her shoulders. Initial CT imaging on 03/27 was unremarkable at which point she was discharged home. She returned 2 days later with progression of her symptoms.
MRI of her brain and cervical spine was unremarkable except for low-lying cerebellar tonsils up to 5 mm below the level of the foramen magnum with no evidence of crowding or mass effect at the craniocervical junction. These findings are likely
similar to previously reported small Chiari malformation not requiring neurosurgical intervention. She was evaluated by the neurology service who felt no acute interventions were indicated. She was started on pregabalin, B12, and iron
supplementation which she should continue. It was also recommended that she follow-up with a psychologist for cognitive behavioral therapy which may also be beneficial in addition to above-mentioned treatment. She will need close outpatient
follow-up with her primary neurologist which she has scheduled. She has been given contact information for our neurology service if she wishes to follow-up with them. She was evaluated by PT/OT who felt she had no skilled needs. At time of
hospital discharge she was medically stable.
General: No Apparent Distress, Comfortable and Conversant
HEENT: NormoCephalic, Moist mucous membranes, Atraumatic
Respiratory: Clear and Non Labored Respirations
Cardiac: S1/S2 and Regular Rhythm; No Rub or Gallop
GI: Soft, Non Tender, Non Distended and Normal Bowel Sounds
Musculoskeletal: No Edema, no deformity
Skin: Warm and dry
: NO Lerma
Neuro: Awake, Alert, paresthesias in bilateral hands and feet, no focal motor deficits
Psych: Calm and Intact Judgment/Insight
Discharge Plan
-
Patient Disposition: Home (Routine Discharge)
Discharge Diagnosis/Procedures: Paresthesias
Activity Restrictions/Additional Instructions:
Ms. Lim is a 19-year-old female with a medical history of endometriosis, POTS, and reported history of Chiari malformation who presented with paresthesias of her bilateral hands and feet. Her symptoms began on 03/27 initially starting then
spreading to her hips and downward to her feet and upward across her back to her shoulders. Initial CT imaging on 03/27 was unremarkable at which point she was discharged home. She returned 2 days later with progression of her symptoms.
MRI of her brain and cervical spine was unremarkable except for low-lying cerebellar tonsils up to 5 mm below the level of the foramen magnum with no evidence of crowding or mass effect at the craniocervical junction. These findings are likely
similar to previously reported small Chiari malformation not requiring neurosurgical intervention. She was evaluated by the neurology service who felt no acute interventions were indicated. She was started on pregabalin, B12, and iron
supplementation which she should continue. It was also recommended that she follow-up with a psychologist for cognitive behavioral therapy which may also be beneficial in addition to above-mentioned treatment. She will need close outpatient
follow-up with her primary neurologist which she has scheduled. She has been given contact information for our neurology service if she wishes to follow-up with them. She was evaluated by PT/OT who felt she had no skilled needs. At time of
hospital discharge she was medically stable.
Referrals:
Randy Sanchez MD [Active, Neurology]
Iraida Cortes DO [Family Provider, Pediatrics]
Prescriptions:
New
cyanocobalamin (vitamin B-12) [Vitamin B-12] 1,000 mcg Tablet
1,000 mcg PO DAILY 30 Days Qty: 30 0RF
ferrous sulfate [FeroSul] 325 mg (65 mg iron) Tablet
325 mg PO DAILY 30 Days Qty: 30 0RF
pregabalin 50 mg Capsule
50 mg PO TID 30 Days Qty: 90 0RF
Continued
melatonin 10 mg Tablet
10 mg PO HS PRN (Reason: sleep)
Wegovy 1 mg/0.5 mL Pen Injector
1 mg SC QWEEK
ondansetron HCl 4 mg Tablet
4 mg PO Q4HPRN PRN (Reason: Nausea)
naproxen
500 100 ml PO PRN PRN (Reason: Migraines)
Discharge Orders:
Discharge Patient (As Directed); Ordered 03/31/25
Ordered By: Esteban Mortensen
Care Plan Goals
Care Plan Goals:
Problem: Readiness for enhanced knowledge related to diagnosis and treatment plan
Goal: Understand your diagnosis and treatment plan needs, including medications if applicable.
Instructions: Know your diagnosis, underlying causes and treatment plan options, including medications if applicable. Consult with your health care team to learn about your diagnosis and treatment plan, including medications if applicable.
Discharge Date and Time
Print Language: DOMINICAN
--- NOTE | 2025-03-31 14:09 | PTCARENOTE ---
D/c pt to home
[2025-03-31 15:06] LABS: Lyme Antibody Screen, EIA Negative (Negative)
== END 2025-03-31 14:11 | disposition home or self-care (01) ==
LOC: IVU 05:46
PROVIDERS: Emergency Medicine; Physician Assistant; ADMITTING PHYSICIAN Hospitalist; ATTENDING PHYSICIAN Internal Medicine; CONSULT PHYSICIAN Psychiatry & Neurology Neurology; EMERGENCY PHYSICIAN Emergency Medicine; FAMILY PHYSICIAN Pediatrics
DX: R20.2 Paresthesia of skin (principal); G93.5 Compression of brain; E66.9 Obesity, unspecified; G90.A Postural orthostatic tachycardia syndrome [POTS]; Z68.32 Body mass index [BMI] 32.0-32.9, adult; Z79.85 Long-term (current) use of injectable non-insulin antidiabetic drugs; Z79.899 Other long term (current) drug therapy; Z82.49 Family history of ischemic heart disease and other diseases of the circulatory system; Z87.42 Personal history of other diseases of the female genital tract; Z99.3 Dependence on wheelchair
CPT/HCPCS: 70553; 72156; 80048; 80053; 82607; 82728; 82746; 83036; 83540; 83550; 83735; 84443; 84703; 85025; 85027; 85652; 86140; 86618; 93005; 96361; 96374; 97163; 97167; 99285; A9575; G0378; J2916

== ENCOUNTER 2025-05-07 01:18 | Emergency (ER) | payer OTHER, SELFPAY ==
[2025-05-07 01:22] VITALS: BP 112/81
[2025-05-07 02:02] VITALS: BMI 31.8
[2025-05-07] MEDS: ROXICODONE 5 MG PO (02:30)
--- NOTE | 2025-05-07 02:36 | ED.GENMED ---
Addendum entered and electronically signed by Ganesh Tinoco DO 05/07/25 02:55:
Error; note should read the patient is a 23-year-old female
Original Note:
History of Present Illness
General
Chief Complaint: Musculo-Skeletal Complaint
Time Seen by Provider: 05/07/25 02:16
History of Present Illness
History of Present Illness:
FOCUSED PAST MEDICAL HISTORY
- POTS, high blood pressure, endometriosis, anxiety/depression
REVIEW OF OLD RECORDS
- The patient was admitted here with a gait disturbance and March of this year
Note:
CHIEF COMPLAINT(S)
Right elbow pain after injury.
HISTORY OF PRESENT ILLNESS
The patient is a 3-year-old female who presented with right elbow pain following a fall while roughhousing. The fall occurred when she hit the back part of her elbow on a hard surface. She reports a throbbing pain in the affected area and states, 'I
cant move it but it hurts so much.' The pain worsens upon certain movements, particularly when attempting to flex the elbow. Physical examination indicates localized tenderness over the back of the elbow. There is significant swelling, which
suggests possible nerve involvement. An x-ray was performed, and while no definite fracture was observed, the possibility of bone shift was noted. Due to the level of pain and swelling, the elbow will be treated as if a fracture is present until a
definitive diagnosis is made by orthopedics.
PHYSICAL EXAM
-General: Well appearing but in mild distress related pain at the right elbow
-HEENT: Moist oral mucosa
-Neurologic: Excellent distal strength in all extremities
-Psychiatric: Appropriate mental status, normal insight and judgement
-Extremities: There is decreased active range of motion at the right elbow due to pain, mild soft tissue swelling at the elbow, there is moderate to severe tenderness at the proximal ulna, no sick radial head tenderness, good perfusion distally, no
obvious deformity
-Skin: No rash, no lesions
EXTERNAL RECORDS REVIEWED
Independent interpretation of the x-ray indicates no definite fracture identified however there is a slight lucency through the olecranon
PLAN
- Prescribe a stronger analgesic (Percocet) and provide a prescription for several days duration.
- Apply a long arm splint to immobilize the elbow over the weekend until orthopedic follow-up.
- Referral to an behavioral health specialist for further evaluation.
- Recommend ice application and elevation of the elbow to manage swelling.
DIFFERENTIAL DIAGNOSIS
The Differential Diagnosis includes, in no particular order and is not limited to:
- Occult fracture
- Elbow dislocation
- Soft tissue injury
- Nerve impingement
- Contusion
- Effusion
- Radial head injury
- Olecranon bursitis
- Ligamentous injury
- Compressive neuropathy
SUMMARY OF ENCOUNTER
The patient was seen in the emergency department following a fall resulting in elbow trauma. Evaluation included a physical examination and an x-ray, which did not reveal a fracture, although a bone shift was considered. Due to the severity of pain
and swelling, the patient was treated conservatively as if a fracture was present. A strong analgesic was administered and a splint was applied. Follow-up with orthopedics was advised to rule out occult fracture and to plan further management.
DISPOSITION
Discharge with follow-up to orthopedics.
EMERGENCY TREATMENTS ADMINISTERED
Administered Percocet for acute pain relief prior to discharge.
MEDICATION RECONCILIATION
- Percocet administered for pain relief.
- Prescription for Percocet provided for the next few days.
MEDICAL DECISION MAKING
- Complexity of Data Reviewed: Chronic conditions affecting care: None discussed.
- Included the DDx list from differential diagnosis.
Data:
Category 1:
- Reviewed independent x-ray interpretation.
Risk:
- Prescription medication was prescribed and included Percocet for pain management.
- Consideration of Admission/Observation: Escalation of care including admission/observation was considered given the complexity and risk of the patients presenting complaint, exam findings, and/or their underlying comorbidities. However, ultimately
I feel the patient is safe for outpatient management with close follow-up. Reasoning: Work-up reassuring, does not reveal any acute life/organ-threatening processes, patients symptoms well controlled upon reevaluation, reexamination is reassuring,
vitals are stable, patient agreeable with discharge, reliable for follow-up.
DIAGNOSIS
- Right elbow pain secondary to trauma, suspecting occult fracture (S42.40XA)
- Throbbing pain in right elbow (M25.521)
RADIOLOGY
- Lucency noted at the olecranon, there also appears to be somewhat of a abnormal appearance of the olecranon on the AP view only
SUMMARY OF ENCOUNTER
The patient, a 3-year-old female, was seen in the emergency department due to right elbow pain following a fall while roughhousing. A physical examination revealed localized tenderness and swelling at the back of the right elbow. An x-ray was
performed, which showed no definite fracture but a possible bone shift. Due to significant pain and swelling, the treatment was conducted conservatively as if a fracture was suspected. The patient was provided a prescription for
acetaminophen-oxycodone (Percocet) for pain management and a long arm splint was applied to immobilize the elbow. Follow-up with an behavioral health specialist was recommended.
DISPOSITION
Discharge with follow-up to orthopedics.
ASSESSMENT
The patient presents with right elbow pain secondary to trauma, with suspected occult fracture and potential bone shift noted on imaging.
EMERGENCY TREATMENTS ADMINISTERED
Acetaminophen-oxycodone (Percocet) administered for acute pain relief prior to discharge.
PLAN
- Prescribe acetaminophen-oxycodone (Percocet) for pain relief for the next few days.
- Apply a long arm splint for elbow immobilization.
- Refer to an behavioral health specialist for further evaluation.
- Recommend ice application and elevation to manage swelling.
INDEPENDENT REVIEW OF LABS AND INTERPRETATION OF TESTS
My independent interpretation of the x-ray indicates no definite fracture, but a possible bone shift. There is no obvious sign of dislocation.
MEDICATION RECONCILIATION
- Acetaminophen-oxycodone (Percocet) administered for pain relief.
- Prescription for acetaminophen-oxycodone (Percocet) provided for ongoing pain management.
MEDICAL DECISION MAKING
- Complexity of Data Reviewed: The differential diagnosis includes occult fracture, elbow dislocation, soft tissue injury, nerve impingement, contusion, effusion, radial head injury, olecranon bursitis, ligamentous injury, and compressive neuropathy.
- Data:
Category 1:
- Reviewed independent x-ray interpretation.
- Risk:
Prescription medication was prescribed with acetaminophen-oxycodone (Percocet) for pain management. Consideration of Admission/Observation: Escalation of care including admission/observation was considered given the complexity and risk of the
patients presenting complaint and exam findings. However, ultimately it was felt that the patient is safe for outpatient management with close follow-up. Work-up did not reveal any acute life-threatening processes, symptoms were well controlled upon
re-evaluation, reexamination was reassuring, vitals were stable, and the patient was agreeable with discharge, demonstrating reliability for follow-up.
DIAGNOSIS
- Right elbow pain secondary to trauma, suspecting occult fracture (S42.40XA)
- Throbbing pain in right elbow (M25.521)
Past History
Past History
ED Past Medical History: Other (POTS, endometriosis, constipation, functional neurological disorder)
ED Past Surgical History: Other ([place] teeth, laparotomy x 5, Ortho, ear tubes)
Social History
Tobacco: 2nd hand smoke exposure
Alcohol: None
Drug: None and Marijuana
Personal: Other
Living: with family
Employment: Employed
Family History
Family History: Other (Reviewed and noncontributory)
Phy Exam
Physical Exam
Physical Exam:
See HPI
Course
Orders/Labs/Results
Orders:
Orders
05/07/25 01:27
Elbow, Right 3 View [CR Elbow - Right Min 3 Views] Urgent
Comment: n
Reason For Exam: injury
05/07/25 02:26
Splints/Slings/Crut- Treatment ONCE
Location: Right
Type of Splint: Long Arm
Oxycodone [Roxicodone] 5 mg PO NOW STA
Vital Signs
Initial and Last Documented VS:
Initial Vital Signs
Temp Pulse Resp BP Pulse Ox
36.5 C 88 20 112/81 98
05/07/25 01:22 05/07/25 01:05/07/25 01:05/07/25 01:05/07/25 01:22
Last Documented Vital Signs
Temp Pulse Resp BP Pulse Ox
36.5 C 88 20 112/81 98
05/07/25 01:05/07/25 01:05/07/25 01:05/07/25 01:05/07/25 02:36
*Pulse Oximetry
SaO2: 98
Oxygen Mode of Delivery: Room air
Patient hypoxic: no
*Critical Care Note
Total Time (30-74mins, 75-104mins- exclusive of procedures): Not Applicable
ED Attending Note
-
Portions of this chart may have been created with voice recognition software.� Occasional wrong word or��sound alike� substitutions may have occurred due to the inherent limitations of voice recognition software.
Discharge Plan
Departure
Patient Disposition: Home (Routine Discharge)
Date of Disposition: 05/07/25
Time of Disposition: 02:36
Patient with high blood pressure during this ER visit?: Yes
Discharge Problem:
Injury of elbow, right
Instructions: BLOOD PRESSURE
Prescriptions:
New
oxycodone-acetaminophen [Percocet] 5-325 mg tablet
1 tab PO Q6HPRN PRN (Reason: pain) Qty: 14 0RF
No Action
melatonin 10 mg Tablet
10 mg PO HS PRN (Reason: sleep)
Wegovy 1 mg/0.5 mL Pen Injector
1 mg SC QWEEK
ondansetron HCl 4 mg Tablet
4 mg PO Q4HPRN PRN (Reason: Nausea)
naproxen
500 100 ml PO PRN PRN (Reason: Migraines)
cyanocobalamin (vitamin B-12) [Vitamin B-12] 1,000 mcg Tablet
1,000 mcg PO DAILY 30 Days Qty: 30 0RF
ferrous sulfate [FeroSul] 325 mg (65 mg iron) Tablet
325 mg PO DAILY 30 Days Qty: 30 0RF
pregabalin 50 mg Capsule
50 mg PO TID 30 Days Qty: 90 0RF
Referrals:
Iraida Cortes DO [Family Provider, Pediatrics]
Danial Nowak MD [Active, Orthopedics]
Activity Restrictions/Additional Instructions:
I recommend that you follow-up with a orthopedist such as Dr. Nowak. I sent a prescription for narcotic to your pharmacy. Will have you keep the splint on until orthopedics can reevaluate you this coming week. Call their office on Friday for
appointment.
Interventions
Interventions:
*Risk Screen - Suicide Last Done: 05/07/25 01:22
*General Assessment Last Done: 05/07/25 01:22
*Neglect/Abuse Screening Last Done: 05/07/25 01:22
*ED- Fall Risk Assessment Last Done: 05/07/25 01:22
*ED COVID-19 Vaccine History Last Done: 05/07/25 01:22
ED-Musculoskeletal Assessment Last Done: 05/07/25 02:00
Discharge Date and Time
Print Language: WELSH
== END 2025-05-07 03:46 | disposition home or self-care (01) ==
LOC: EMR 01:18
PROVIDERS: EMERGENCY PHYSICIAN Emergency Medicine; FAMILY PHYSICIAN Pediatrics
DX: S59.901A Unspecified injury of right elbow, initial encounter (principal); G90.A Postural orthostatic tachycardia syndrome [POTS]; F41.9 Anxiety disorder, unspecified; F32.A Depression, unspecified; F44.7 Conversion disorder with mixed symptom presentation; Z77.22 Contact with and (suspected) exposure to environmental tobacco smoke (acute) (chronic); W18.39XA Other fall on same level, initial encounter; W22.09XA Striking against other stationary object, initial encounter; Y93.83 Activity, rough housing and horseplay
CPT/HCPCS: 99283; 29105; 73080